=== PATIENT | female | born 1990 | race Caucasian/White ===

== ENCOUNTER 2022-02-05 13:57 | Emergency (ER) | payer SELFPAY ==
[~2022-02-05] VITALS: Ht 147 cm; Wt 58.9 kg
[2022-02-05 15:34] LABS: CLARITY,URINE SL CLOUDY; COLOR,URINE RED; GLUCOSE, URINE (UA) 1+ (NEGATIVE); KETONES,URINE 1+ (NEGATIVE); LEUKOCYTE ESTERASE ,URINE 2+ (NEGATIVE); NITRITE,URINE POSITIVE (NEGATIVE); PH,URINE 6.5 (5-9); PROTEIN,URINE 2+ (NEGATIVE)
[2022-02-05 15:42] LABS: BACTERIA,URINE MODERATE /HPF; BILIRUBIN,URINE NEGATIVE (NEGATIVE); RBC,URINE 0-2 /HPF; SQUAMOUS EPITHELIAL CELL,UR 25-50 /HPF
[2022-02-05] MEDS ORDERED: KETOROLAC 30 MG/ML VIAL IVP ONE (16:15)
[2022-02-05] MEDS ORDERED: PROMETHAZINE INJ 25 MG/ML (PHENERGAN) AMP IVP ONE (16:15)
[2022-02-05] MEDS ORDERED: NS IV 1000 ML 1,000 ML IV ONE (16:15)
--- NOTE | 2022-02-05 16:20 | ED Back Pain ---
General Chief Complaint: Back Problems Stated Complaint: SWEATS,WEAKNESS,BACK PAIN Nursing Triage Note: Pt c/o bilat flank pain that radiates around to lower abd. Pt has been taking AZO, tylenol,motrin with no relief, also reports having the "sweats". Pt recently moved to this area and does not have PCP yet, is out of gabapentin and other meds. Source of Information: Patient Exam Limitations: No Limitations History of Present Illness Date Seen by Provider: February 05, 2022 Time Seen by Provider: 16:08 Initial Comments THIS IS A 31-YEAR-OLD FEMALE WHO PRESENTED TO THE ER WITH COMPLAINTS OF SUPRAPUBIC ABDOMINAL PAIN THAT RADIATES UP IN 2 HER BILATERAL FLANK REGION. Allergies and Home Medications Allergies Coded Allergies: No Known Drug Allergies (Unverified , 02/05/22) Patient Home Medication List Ciprofloxacin HCl (Ciprofloxacin HCl) 500 Mg Tablet, 500 MG PO BID Prescribed by: PATRICIA EUCEDA on 02/05/22 173 Promethazine HCl (Promethazine Tablet) 25 Mg Tablet, 25 MG PO Q6H PRN for NAUSEA/VOMITING Prescribed by: PATRICIA EUCEDA on 02/05/22 1733 Past Dverogp-Xnzdpc-Chzonv Hx Patient Social History Tobacco Use?: Yes Tobacco type used: Cigarettes Smoking Status: Current Everyday Smoker Substance use?: No Alcohol Use?: No Immunizations Up To Date Influenza Vaccine Up-to-Date: No; Not Current Past Medical History Surgery/Hospitalization HX: asthma, hx of cervical CA, neuropathy Physical Exam Vital Signs Vital Signs - First Documented 02/05/22 14:40 Temp 36.8 Pulse 67 Resp 18 B/P (MAP) 109/41 (63) Pulse Ox 98 O2 Delivery Room Air Capillary Refill : Less Than 3 Seconds Height, Weight, BMI Height: '" Weight: lbs. oz. kg; 27.00 BMI Method: Progress/Results/Core Measures Results/Orders Lab Results Laboratory Tests Test 02/05/22 06:27 02/05/22 14:30 Range/Units White Blood Count 8.0 4.3-11.0 10^3/uL Red Blood Count 4.69 3.80-5.11 10^6/uL Hemoglobin 14.4 11.5-16.0 g/dL Hematocrit 42 35-52 % Mean Corpuscular Volume 90 80-99 fL Mean Corpuscular Hemoglobin 31 25-34 pg Mean Corpuscular Hemoglobin Concent 34 32-36 g/dL Red Cell Distribution Width 11.9 10.0-14.5 % Platelet Count 236 130-400 10^3/uL Mean Platelet Volume 9.6 9.0-12.2 fL Immature Granulocyte % (Auto) 0 % Neutrophils (%) (Auto) 48 42-75 % Lymphocytes (%) (Auto) 45 H 12-44 % Monocytes (%) (Auto) 6 0-12 % Eosinophils (%) (Auto) 1 0-10 % Basophils (%) (Auto) 0 0-10 % Neutrophils # (Auto) 3.8 1.8-7.8 10^3/uL Lymphocytes # (Auto) 3.6 1.0-4.0 10^3/uL Monocytes # (Auto) 0.4 0.0-1.0 10^3/uL Eosinophils # (Auto) 0.1 0.0-0.3 10^3/uL Basophils # (Auto) 0.0 0.0-0.1 10^3/uL Immature Granulocyte # (Auto) 0.0 0.0-0.1 10^3/uL Sodium Level 139 135-145 MMOL/L Potassium Level 4.2 3.6-5.0 MMOL/L Chloride Level 107 98-107 MMOL/L Carbon Dioxide Level 20 L 21-32 MMOL/L Anion Gap 12 5-14 MMOL/L Blood Urea Nitrogen 12 7-18 MG/DL Creatinine 0.74 0.60-1.30 MG/DL Estimat Glomerular Filtration Rate 110 BUN/Creatinine Ratio 16 Glucose Level 85 70-105 MG/DL Calcium Level 9.6 8.5-10.1 MG/DL Corrected Calcium 9.2 8.5-10.1 MG/DL Total Bilirubin 0.5 0.1-1.0 MG/DL Aspartate Amino Transf (AST/SGOT) 20 5-34 U/L Alanine Aminotransferase (ALT/SGPT) 23 0-55 U/L Alkaline Phosphatase 50 40-136 U/L Total Protein 6.8 6.4-8.2 GM/DL Albumin 4.5 3.2-4.5 GM/DL Urine Color RED H Urine Clarity SL CLOUDY Urine pH 6.5 5-9 Urine Specific [place] 1.015 L 1.016-1.022 Urine Protein 2+ H NEGATIVE Urine Glucose (UA) 1+ H NEGATIVE Urine Ketones 1+ H NEGATIVE Urine Nitrite POSITIVE H NEGATIVE Urine Bilirubin NEGATIVE NEGATIVE Urine Urobilinogen >=8.0 < = 1.0 MG/DL Urine Leukocyte Esterase 2+ H NEGATIVE Urine RBC (Auto) NEGATIVE NEGATIVE Urine RBC 0-2 /HPF Urine WBC 5-10 H /HPF Urine Squamous Epithelial Cells 25-50 H /HPF Urine Crystals NONE /LPF Urine Bacteria MODERATE H /HPF Urine Casts NONE /LPF Urine Mucus MODERATE H /LPF Urine Culture Indicated YES My Orders Orders - PATRICIA EUCEDA TELEPHONER Ua Culture If Indicated (02/05/22 15:29) Urine Bedside (02/05/22 15:29) Urine Culture (02/05/22 14:30) Cbc With Automated Diff (02/05/22 16:08) Comprehensive Metabolic Panel (02/05/22 16:08) Ketorolac Injection (Toradol Injection) (02/05/22 16:15) Ns Iv 1000 Ml (Sodium Chloride 0.9%) (02/05/22 16:15) Promethazine Injection (Phenergan Injec (02/05/22 16:15) Ceftriaxone 1 Gm Pre-Mix (Rocephin 1 Gm (02/05/22 16:30) Medications Given in ED Current Medications Medications Dose Ordered Sig/Mani Route Start Time Stop Time Status Last Admin Dose Admin Ceftriaxone Sodium/Dextrose 50 ml @ 100 mls/hr ONCE ONCE IV 02/05/22 16:30 02/05/22 16:59 DC 02/05/22 17:23 100 MLS/HR Ketorolac Tromethamine 30 mg ONCE ONCE IVP 02/05/22 16:15 02/05/22 16:16 DC 02/05/22 16:25 30 MG Promethazine HCl 25 mg ONCE ONCE IVP 02/05/22 16:15 02/05/22 16:16 DC 02/05/22 16:25 25 MG Sodium Chloride 1,000 ml @ 999 mls/hr Q1H ONCE IV 02/05/22 16:15 02/05/22 17:15 DC 02/05/22 16:25 999 MLS/HR Vital Signs/I&O 02/05/22 14:40 Temp 36.8 Pulse 67 Resp 18 B/P (MAP) 109/41 (63) Pulse Ox 98 O2 Delivery Room Air Blood Pressure Mean: 63 Departure Impression Primary Impression: Pyelonephritis Disposition: 01 HOME, SELF-CARE Condition: Stable Departure-Patient Inst. Decision time for Depature: 17:29 Referrals: NO,LOCAL PHYSICIAN (PCP/Family) Primary Care Physician Patient Instructions: Kidney Infection (DC) Add. Discharge Instructions: Plan: 1. Take anabiotic's daily as directed and complete full course even if you begin to feel better. 2. Make sure you are drinking plenty of water to stay hydrated and empty out your bladder. 3. Establish with a primary care provider of your choice, you can follow-up with [facility] until your insurance is established in [place]. 4. Return for any new, concerning, or worsening symptoms. All discharge instructions reviewed with patient and/or family. Voiced unde rstanding. Scripts Ketorolac Tromethamine (Ketorolac Tromethamine) 10 Mg Tablet 10 MG PO Q6H, #14 TAB 0 Refills Prov: PATRICIA EUCEDA TELEPHONER 02/05/22 Promethazine HCl (Promethazine Tablet) 25 Mg Tablet 25 MG PO Q6H PRN for NAUSEA/VOMITING, #10 TAB 0 Refills Prov: PATRICIA EUCEDA TELEPHONER 02/05/22 Ciprofloxacin HCl (Ciprofloxacin HCl) 500 Mg Tablet 500 MG PO BID for 7 Days, #14 TAB 0 Refills Prov: PATRICIA EUCEDA TELEPHONER 02/05/22 PATRICIA EUCEDA TELEPHONER February 05, 2022 16:19
[2022-02-05] MEDS ORDERED: cefTRIAXone 1 GM PRE-MIX 50 ML IV ONE (16:30)
[2022-02-05 16:35] LABS: BASOPHILS % (AUTO) 0 % (0-10); EOSINOPHILS # (AUTO) 0.1 10^3/uL (0.0-0.3); EOSINOPHILS % (AUTO) 1 % (0-10); HEMATOCRIT 42 % (35-52); HEMOGLOBIN 14.4 g/dL (11.5-16.0); LYMPHOCYTES # (AUTO) 3.6 10^3/uL (1.0-4.0); LYMPHOCYTES % (AUTO) 45 % (12-44); MEAN CORPUSCULAR HEMOGLOBIN 31 pg (25-34); MEAN CORPUSCULAR HGB CONC 34 g/dL (32-36); MEAN CORPUSCULAR VOLUME 90 fL (80-99); MEAN PLATELET VOLUME 9.6 fL (9.0-12.2); MONOCYTES # (AUTO) 0.4 10^3/uL (0.0-1.0); MONOCYTES % (AUTO) 6 % (0-12); NEUTROPHILS # (AUTO) 3.8 10^3/uL (1.8-7.8); NEUTROPHILS % (AUTO) 48 % (42-75); PLATELET COUNT 236 10^3/uL (130-400)
[2022-02-05 16:43] LABS: ALBUMIN 4.5 GM/DL (3.2-4.5); POTASSIUM 4.2 MMOL/L (3.6-5.0)
[2022-02-05 16:44] LABS: CALCIUM 9.6 MG/DL (8.5-10.1)
[2022-02-05 16:46] LABS: TOTAL PROTEIN 6.8 GM/DL (6.4-8.2)
[2022-02-05 16:48] LABS: BILIRUBIN,TOTAL 0.5 MG/DL (0.1-1.0)
[2022-02-05 16:49] LABS: CREATININE SERUM 0.74 MG/DL (0.60-1.30)
[2022-02-05] MEDS ORDERED: CIPR500T5 PO (17:33)
[2022-02-05] MEDS ORDERED: PROM25TA14 PO (17:33)
[2022-02-05 17:51] VITALS: BP 105/66
[2022-02-05] MEDS ORDERED: KETO10TA PO (17:58)
== END 2022-02-05 17:51 | disposition home or self-care (01) ==
LOC: ER 14:00
DX: N10 Acute pyelonephritis (principal); F17.210 Nicotine dependence, cigarettes, uncomplicated
CPT/HCPCS: 36415; 80053; 81000; 84703; 85025; 87088; 99282

== ENCOUNTER 2022-03-12 18:38 | Emergency (ER) | payer MEDICAID ==
[~2022-03-12] VITALS: Ht 147 cm; Wt 65.0 kg
[~2022-03-12 18:38] MED LIST: CIPR500T5 PO; KETO10TA PO; PROM25TA14 PO
--- NOTE | 2022-03-12 19:14 | ED General ---
General Stated Complaint: SOB,SLEEPY,FATIGUE Source of Information: Patient History of Present Illness Date Seen by Provider: Mar 12, 2022 Time Seen by Provider: 18:59 Initial Comments PT ARRIVES VIA POV FROM HOME PT WITH MULTIPLE COMPLAINTS--ALL ONGOING FOR THE LAST 3-4 WEEKS STATES SHE HAD COVID 3-4 WEEKS AGO, AND IS STILL FEELING BAD--STATES SHE WAS GETTING A LITTLE BETTER, THEN STARTED FEELING BAD AGAIN 3-4 DAYS AGO. LATER STATES SHE TESTED + FOR COVID ON 02/23/22 STATES SHE WAS SEEN AT [facility], AND TESTED + THERE. NO TREATMENT C/O FATIGUE, FEELING SLEEPY--"I'M ONLY CONSCIOUS FOR ABOUT 3-4 HOURS AT A TIME" C/O NAUSEA, NO VOMITING--NO NAUSEA AT THIS TIME C/O CONSTIPATION--NO BM X 2 WEEKS. HAS CHRONIC CONSTIPATION, BUT HAS NOT TAKEN ANYTHING AT ANY TIME FOR THIS PROBLEM. NO FEVER/SWEATS/CHILLS C/O DIZZINESS ON STANDING NO ABDOMINAL PAIN NO URINARY SYMPTOMS SYMPTOMS ARE NO DIFFERENT TONIGHT, HAS NOT SOUGHT CARE AT ANY TIME, SINCE SHE TESTED + A FEW WEEKS AGO AT [facility]. WAS SEEN HERE 02/05/22 AND DX WITH UTI/PYELONEPHRITIS--GIVEN RX'S FOR CIPRO, TORADOL, PHENERGAN STATES SHE JUST MOVED HERE "A MONTH OR SO AGO" FROM [facility] SHE HAS 6 KIDS AT HOME PT HAS HISTORY OF CHRONIC OPIATE USE/ABUSE--NOW ON SUBOXONE ALSO TAKES GABAPENTIN PT HAS HISTORY OF ALCOHOLISM, QUIT DRINKING 7 YEARS AGO HISTORY OF SMOKING 2 PPD, QUIT A FEW WEEKS AGO--QUIT 02/20/22, WHEN SHE BEGAN TO HAVE COVID SYMPTOMS OPIATE USE/ABUSE, DENIES ANY OTHER DRUG USE. PCP [facility] Allergies and Home Medications Allergies Coded Allergies: No Known Drug Allergies (Unverified , 02/05/22) Patient Home Medication List Home Medication List Reviewed: Yes Ciprofloxacin HCl (Ciprofloxacin HCl) 500 Mg Tablet, 500 MG PO BID Prescribed by: PATRICIA EUCEDA on 02/05/22 1593 Ketorolac Tromethamine (Ketorolac Tromethamine) 10 Mg Tablet, 10 MG PO Q6H Prescribed by: PATRICIA EUCEDA on 02/05/22 9501 Ondansetron (Ondansetron Odt) 4 Mg Tab.rapdis, 4 MG PO Q4H Prescribed by: MASSIEL VOGEL on 03/12/221999 Promethazine HCl (Promethazine Tablet) 25 Mg Tablet, 25 MG PO Q6H PRN for NAUSEA/VOMITING Prescribed by: PATRICIA EUCEDA on 02/05/22 1736 Review of Systems Review of Systems Constitutional: see HPI, dizziness; No fever; malaise, weakness EENTM: no symptoms reported Respiratory: see HPI, short of breath Cardiovascular: no symptoms reported Gastrointestinal: see HPI, constipation, loss of appetite, nausea; No vomiting Genitourinary: no symptoms reported : No Musculoskeletal: other (CHRONIC GENERALIZED PAIN ) Skin: no symptoms reported Psychiatric/Neurological: No Symptoms Reported Past Eaeiwoh-Npijgf-Mdybuk Hx Patient Social History Tobacco Use?: Yes Tobacco type used: Cigarettes Smoking Status: Current Everyday Smoker Substance use?: Yes Substance type: Opiates/Opioids Alcohol Use?: Yes Past Medical History Surgery/Hospitalization HX: asthma, hx of cervical CA, neuropathy Surgeries: Yes (LEEP, TEETH REMOVED) Gallbladder Respiratory: Yes Asthma Cardiac: No Neurological: Yes (FIBROMYALGIA) Neuropathy Reproductive Disorders: Yes (CERVICAL CANCER) Genitourinary: Yes Bladder Infection Gastrointestinal: Yes Chronic Constipation Musculoskeletal: Yes (CHRONIC GENERALIZED PAIN ) Fibromyalgia Endocrine: No HEENT: Yes (ALL TEETH REMOVED) Cervical Did You Recieve Any Treatments: Yes What Type of Treatment Did You: Surgical Intervention LEEP PROCEDURE Psychosocial: Yes (POLYSUBSTANCE ABUSE-ALCOHOL + OPIATES) Integumentary: No Blood Disorders: No Family Medical History SOCIAL HISTORY: -SMOKES 2 PPD -ETOH--HISTORY OF VERY HEAVY/DAILY USE. CLAIMS NO USE X 7 YEARS, PER PT 03/12/22 -DRUGS--CHRONIC OPIATE USE/ABUSE-NOW ON SUBOXONE PAST SURGICAL HISTORY: -LEEP -CHOLECYSTECTOMY -ALL TEETH REMOVED Physical Exam Vital Signs Vital Signs - First Documented 03/12/22 19:25 Pulse 80 Resp 18 B/P (MAP) 101/63 (76) Pulse Ox 99 O2 Delivery Room Air Capillary Refill : Height, Weight, BMI Height: '" Weight: lbs. oz. kg; 27.00 BMI Method: General Appearance: No Apparent Distress, WD/WN, Other (DOES NOT APPEAR ILL OR TO BE IN ANY DISCOMFORT OR DISTRESS. ) HEENT: PERRL/EOMI, TMs Normal, Normal ENT Inspection, Pharynx Normal, Moist Mucous Membranes, Other (ORAL MUCOSA MOIST) Neck: Normal Inspection Respiratory: Normal Breath Sounds, No Accessory Muscle Use, No Respiratory Distress Cardiovascular: Regular Rate, Rhythm, No Edema, No JVD, No Murmur, Normal Peripheral Pulses Gastrointestinal: Normal Bowel Sounds, No Organomegaly, No Pulsatile Mass, Non Tender, Soft Back: Normal Inspection Extremity: Normal Capillary Refill, Normal Inspection, Normal Range of Motion, Non Tender, No Calf Tenderness, No Pedal Edema Neurologic/Psychiatric: Alert, Oriented x3, No Motor/Sensory Deficits, 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 ) Skin: Normal Color, Warm/Dry Progress/Results/Core Measures Suspected Sepsis SIRS Temperature: Pulse: Respiratory Rate: Laboratory Tests 03/12/22 19:20: White Blood Count 6.1 Blood Pressure / Mean: Laboratory Tests 03/12/22 19:20: Creatinine 0.74, Platelet Count 212, Total Bilirubin 0.3 Results/Orders Lab Results Laboratory Tests Test 03/12/22 19:20 03/12/22 19:39 Range/Units White Blood Count 6.1 4.3-11.0 10^3/uL Red Blood Count 4.40 3.80-5.11 10^6/uL Hemoglobin 13.0 11.5-16.0 g/dL Hematocrit 39 35-52 % Mean Corpuscular Volume 88 80-99 fL Mean Corpuscular Hemoglobin 30 25-34 pg Mean Corpuscular Hemoglobin Concent 33 32-36 g/dL Red Cell Distribution Width 11.9 10.0-14.5 % Platelet Count 212 130-400 10^3/uL Mean Platelet Volume 9.1 9.0-12.2 fL Immature Granulocyte % (Auto) 0 % Neutrophils (%) (Auto) 43 42-75 % Lymphocytes (%) (Auto) 51 H 12-44 % Monocytes (%) (Auto) 5 0-12 % Eosinophils (%) (Auto) 1 0-10 % Basophils (%) (Auto) 0 0-10 % Neutrophils # (Auto) 2.6 1.8-7.8 10^3/uL Lymphocytes # (Auto) 3.1 1.0-4.0 10^3/uL Monocytes # (Auto) 0.3 0.0-1.0 10^3/uL Eosinophils # (Auto) 0.1 0.0-0.3 10^3/uL Basophils # (Auto) 0.0 0.0-0.1 10^3/uL Immature Granulocyte # (Auto) 0.0 0.0-0.1 10^3/uL Sodium Level 139 135-145 MMOL/L Potassium Level 3.8 3.6-5.0 MMOL/L Chloride Level 105 98-107 MMOL/L Carbon Dioxide Level 23 21-32 MMOL/L Anion Gap 11 5-14 MMOL/L Blood Urea Nitrogen 17 7-18 MG/DL Creatinine 0.74 0.60-1.30 MG/DL Estimat Glomerular Filtration Rate 110 BUN/Creatinine Ratio 23 Glucose Level 107 H 70-105 MG/DL Calcium Level 9.4 8.5-10.1 MG/DL Corrected Calcium 8.5-10.1 MG/DL Magnesium Level 1.9 1.6-2.4 MG/DL Total Bilirubin 0.3 0.1-1.0 MG/DL Aspartate Amino Transf (AST/SGOT) 40 H 5-34 U/L Alanine Aminotransferase (ALT/SGPT) 58 H 0-55 U/L Alkaline Phosphatase 51 40-136 U/L Total Protein 6.8 6.4-8.2 GM/DL Albumin 4.6 H 3.2-4.5 GM/DL Amylase Level 46 25-125 U/L Lipase 33 8-78 U/L TSH [facility] Testing 0.74 0.35-4.94 UIU/ML Urine Color YELLOW Urine Clarity CLEAR Urine pH 6.0 5-9 Urine Specific [place] >=1.030 1.016-1.022 Urine Protein NEGATIVE NEGATIVE Urine Glucose (UA) NEGATIVE NEGATIVE Urine Ketones NEGATIVE NEGATIVE Urine Nitrite NEGATIVE NEGATIVE Urine Bilirubin NEGATIVE NEGATIVE Urine Urobilinogen 0.2 < = 1.0 MG/DL Urine Leukocyte Esterase NEGATIVE NEGATIVE Urine RBC (Auto) NEGATIVE NEGATIVE Urine RBC NONE /HPF Urine WBC 0-2 /HPF Urine Squamous Epithelial Cells 5-10 /HPF Urine Renal Epithelial Cells NONE /HPF Urine Crystals NONE /LPF Urine Bacteria FEW H /HPF Urine Casts NONE /LPF Urine Mucus NEGATIVE /LPF Urine Culture Indicated NO Urine Opiates Screen NEGATIVE NEGATIVE Urine Oxycodone Screen NEGATIVE NEGATIVE Urine Methadone Screen NEGATIVE NEGATIVE Urine Propoxyphene Screen NEGATIVE NEGATIVE Urine Barbiturates Screen NEGATIVE NEGATIVE Ur Tricyclic Antidepressants Screen NEGATIVE NEGATIVE Urine Phencyclidine Screen NEGATIVE NEGATIVE Urine Amphetamines Screen NEGATIVE NEGATIVE Urine Methamphetamines Screen NEGATIVE NEGATIVE Urine Benzodiazepines Screen NEGATIVE NEGATIVE Urine Cocaine Screen NEGATIVE NEGATIVE Urine Cannabinoids Screen NEGATIVE NEGATIVE My Orders Orders - MASSIEL VOGEL DO Drug Screen Stat (Urine) (03/12/22 18:58) Ua Culture If Indicated (03/12/22 18:58) Isolation Central Supply Req (03/12/22 18:58) Urine Bedside (03/12/22 18:58) Ed Iv/Invasive Line Start (03/12/22 19:04) Amylase (03/12/22 19:04) Cbc With Automated Diff (03/12/22 19:04) Comprehensive Metabolic Panel (03/12/22 19:04) Lipase (03/12/22 19:04) Magnesium (03/12/22 19:04) Thyroid Analyzer (03/12/22 19:04) Ed Iv/Invasive Line Start (03/12/22 19:04) Chest Pa/Lat (2 View) (03/12/22 19:04) Vital Signs/I&O 03/12/22 03/12/22 19:25 20:04 Pulse 80 62 Resp 18 18 B/P (MAP) 101/63 (76) 101/63 Pulse Ox 99 96 O2 Delivery Room Air Room Air Capillary Refill : Progress Note : Progress Note UNEVENTFUL ER STAY NO COUGH NO FEVER NO DYSPNEA NO HYPOXIA NO GI SYMTPOMS DURING ER STAY Diagnostic Imaging Comments CXR--NO ACUTE PROCESS, PER RADIOLOGIST REPORT AT 2019 FINDINGS: The cardiac silhouette is within normal limits in size. No significant pulmonary vascular congestion. The lungs appear clear. No pleural effusion. No pneumothorax. Surgical clips overlying the right upper abdomen. No acute osseous abnormality. IMPRESSION: No acute cardiopulmonary abnormality. Reviewed: Reviewed by Me Departure Impression Primary Impression: Malaise and fatigue Additional Impression: Chronic constipation Disposition: 01 HOME, SELF-CARE Condition: Stable Departure-Patient Inst. Decision time for Depature: 19:58 Referrals: [facility] Patient Instructions: Constipation, Adult ED, Fatigue (DC) Add. Discharge Instructions: TAKE MIRALAX EVERY 1-2 HOURS UNTIL YOU HAVE A BM, THEN TAKE ONCE A DAY EVERY DAY CONTINUE YOUR REGULAR MEDICATIONS PRESCRIBED FOLLOW UP WITH [facility] IF SYMPTOMS PERSIST Scripts Ondansetron (Ondansetron Odt) 4 Mg Tab.rapdis 4 MG PO Q4H for Nausea/Vomiting, #10 TAB Prov: MASSIEL VOGEL DO 03/12/22 MASSIEL VOGEL DO Mar 12, 2022 19:14
[2022-03-12 19:29] LABS: BASOPHILS % (AUTO) 0 % (0-10); EOSINOPHILS # (AUTO) 0.1 10^3/uL (0.0-0.3); EOSINOPHILS % (AUTO) 1 % (0-10); HEMATOCRIT 39 % (35-52); LYMPHOCYTES # (AUTO) 3.1 10^3/uL (1.0-4.0); LYMPHOCYTES % (AUTO) 51 % (12-44); MEAN CORPUSCULAR HEMOGLOBIN 30 pg (25-34); MEAN CORPUSCULAR HGB CONC 33 g/dL (32-36); MEAN CORPUSCULAR VOLUME 88 fL (80-99); MEAN PLATELET VOLUME 9.1 fL (9.0-12.2); MONOCYTES # (AUTO) 0.3 10^3/uL (0.0-1.0); MONOCYTES % (AUTO) 5 % (0-12); NEUTROPHILS # (AUTO) 2.6 10^3/uL (1.8-7.8); NEUTROPHILS % (AUTO) 43 % (42-75); PLATELET COUNT 212 10^3/uL (130-400); WHITE BLOOD COUNT 6.1 10^3/uL (4.3-11.0)
[2022-03-12 19:43] LABS: ALBUMIN 4.6 GM/DL (3.2-4.5); CHLORIDE 105 MMOL/L (98-107); POTASSIUM 3.8 MMOL/L (3.6-5.0); SODIUM 139 MMOL/L (135-145)
[2022-03-12 19:44] LABS: BILIRUBIN,URINE NEGATIVE (NEGATIVE); CLARITY,URINE CLEAR; COLOR,URINE YELLOW; GLUCOSE, URINE (UA) NEGATIVE (NEGATIVE); KETONES,URINE NEGATIVE (NEGATIVE); LEUKOCYTE ESTERASE ,URINE NEGATIVE (NEGATIVE); NITRITE,URINE NEGATIVE (NEGATIVE); PROTEIN,URINE NEGATIVE (NEGATIVE)
[2022-03-12 19:44] LABS: AMYLASE 46 U/L (25-125); CALCIUM 9.4 MG/DL (8.5-10.1)
[2022-03-12 19:45] LABS: GLUCOSE 107 MG/DL (70-105); TOTAL PROTEIN 6.8 GM/DL (6.4-8.2)
[2022-03-12 19:46] LABS: CARBON DIOXIDE 23 MMOL/L (21-32)
[2022-03-12 19:47] LABS: BILIRUBIN,TOTAL 0.3 MG/DL (0.1-1.0)
[2022-03-12 19:49] LABS: ALKALINE PHOSPHATASE 51 U/L (40-136); CREATININE SERUM 0.74 MG/DL (0.60-1.30); GFR ESTIMATED 110
[2022-03-12 19:50] LABS: BUN/CREATININE RATIO 23
[2022-03-12 19:50] LABS: BACTERIA,URINE FEW /HPF; WBC,URINE 0-2 /HPF
[2022-03-12 19:52] LABS: ALANINE AMINOTRANSFERASE 58 U/L (0-55); MAGNESIUM 1.9 MG/DL (1.6-2.4)
[2022-03-12 19:53] LABS: LIPASE 33 U/L (8-78)
[2022-03-12 19:54] LABS: AMPHETAMINE SCREEN, URINE NEGATIVE (NEGATIVE); BARBITURATE SCREEN URINE NEGATIVE (NEGATIVE); BENZODIAZEPINES SCREEN URINE NEGATIVE (NEGATIVE); CANNABINOID SCREEN, URINE NEGATIVE (NEGATIVE); COCAINE SCREEN URINE NEGATIVE (NEGATIVE); METHADONE STAT NEGATIVE (NEGATIVE); OPIATE SCREEN URINE NEGATIVE (NEGATIVE); OXYCODONE STAT NEGATIVE (NEGATIVE); PROPOXYPHENE STAT NEGATIVE (NEGATIVE); TRICYCLIC ANTIDEPRESSANTS SCRE NEGATIVE (NEGATIVE)
[2022-03-12] MEDS ORDERED: ONDA4TAB11 PO (20:00)
[2022-03-12 20:04] VITALS: BP 101/63
[2022-03-12 20:13] LABS: TSH (THYROID ANALYZER) 0.74 UIU/ML (0.35-4.94)
--- NOTE | 2022-03-12 20:15 | Diagnostic Imaging Report ---
INDICATION: Dyspnea COMPARISON: None available. TECHNIQUE: Frontal and lateral radiographs of the chest dated 03/12/2022. FINDINGS: The cardiac silhouette is within normal limits in size. No significant pulmonary vascular congestion. The lungs appear clear. No pleural effusion. No pneumothorax. Surgical clips overlying the right upper abdomen. No acute osseous abnormality. IMPRESSION: No acute cardiopulmonary abnormality. Dictated by: Dictated on workstation # [id number]
== END 2022-03-12 20:25 | disposition home or self-care (01) ==
LOC: EDUNIT# 18:38 → ER 18:50
DX: K59.09 Other constipation (principal); R53.81 Other malaise; R53.83 Other fatigue; F17.210 Nicotine dependence, cigarettes, uncomplicated; Z86.16 Personal history of COVID-19
CPT/HCPCS: 36415; 71046; 80053; 80306; 81000; 82150; 83690; 83735; 84443; 84703; 85025

== ENCOUNTER 2022-03-26 12:54 | Emergency (ER) | payer MEDICAID ==
[~2022-03-26] VITALS: Ht 147 cm; Wt 61.0 kg
[~2022-03-26 12:54] MED LIST changes: +ONDA4TAB11 PO
[2022-03-26] MEDS ORDERED: NS IV 1000 ML 1,000 ML IV STA (13:32)
--- NOTE | 2022-03-26 13:37 | ED General ---
General Chief Complaint: Dizziness/Syncope Stated Complaint: WEAKNESS,FATIGUE Nursing Triage Note: PT AMB TO TRIAGE RM 3. PT REPORTS CO DIZZINESS, V, BLURRED VISION, WEAKNESS, SLEEPING ALOT AND LOW ENERGY SINCE FEBRUARY. PT REPORTS HAVING COVID IN FEBRUARY Source of Information: Patient Exam Limitations: No Limitations History of Present Illness Date Seen by Provider: Mar 26, 2022 Time Seen by Provider: 13:34 Initial Comments Patient is a 31-year-old female who presents to the ED with generalized fatigue, weakness. She states she was diagnosed with COVID back in February. Since then she has been feeling more fatigue and wanting to sleep longer. She states she has decreased energy levels. She has had intermittent dull chest discomfort pain left arm pain with shortness of breath since being diagnosed with COVID. She started her menstrual cycle 2 days ago reports heavier bleeding with headache and nausea and vomiting which she typically does not have. She reports right- sided lower back discomfort since having COVID. She denies of any bowel or urine incontinence, saddle paresthesia. No fever. Intermittent headache with no head pain today. She states she has been vomiting and denies of any nausea medication. She states she did have a kidney infection a month ago but that has resolved with antibiotics. Has not followed up with a primary care physician. No known cardiac history. She states she was otherwise healthy before COVID which she got in February and September of this year. She is not up-to-date on her COVID vaccines. Allergies and Home Medications Allergies Coded Allergies: No Known Drug Allergies (Unverified , 02/05/22) Patient Home Medication List Home Medication List Reviewed: Yes Ciprofloxacin HCl (Ciprofloxacin HCl) 500 Mg Tablet, 500 MG PO BID Prescribed by: PATRICIA EUCEDA on 02/05/221732 Ketorolac Tromethamine (Ketorolac Tromethamine) 10 Mg Tablet, 10 MG PO Q6H Prescribed by: PATRICIA EUCEDA on 02/05/22 175 Ondansetron (Ondansetron Odt) 4 Mg Tab.rapdis, 4 MG PO Q4H Prescribed by: MASSIEL VOGEL on 03/12/221999 Promethazine HCl (Promethazine Tablet) 25 Mg Tablet, 25 MG PO Q6H PRN for NAUSEA/VOMITING Prescribed by: PATRICIA EUCEDA on 02/05/221732 Promethazine HCl (Promethazine Tablet) 25 Mg Tablet, 25 MG PO Q6H PRN for NAUSEA/VOMITING Prescribed by: SOFI WEBBER on 03/26/22 1528 Review of Systems Review of Systems Constitutional: chills, malaise EENTM: No blurred vision, No double vision Respiratory: cough, short of breath Gastrointestinal: No abdominal pain, No diarrhea; nausea, vomiting Genitourinary: No decreased output, No discharge Musculoskeletal: back pain; No joint pain Skin: No change in color, No change in hair/nails All Other Systems Reviewed Negative Unless Noted: Yes Past Fjczibj-Kiinda-Qfgpuz Hx Past Medical History Surgery/Hospitalization HX: asthma, hx of cervical CA, neuropathy Surgeries: Yes (LEEP, TEETH REMOVED) Gallbladder Respiratory: Yes Asthma Cardiac: No Neurological: Yes (FIBROMYALGIA) Neuropathy Reproductive Disorders: Yes (CERVICAL CANCER) Genitourinary: Yes Bladder Infection Gastrointestinal: Yes Chronic Constipation Musculoskeletal: Yes (CHRONIC GENERALIZED PAIN ) Fibromyalgia Endocrine: No HEENT: Yes (ALL TEETH REMOVED) Cervical Did You Recieve Any Treatments: Yes What Type of Treatment Did You: Surgical Intervention Psychosocial: Yes (POLYSUBSTANCE ABUSE-ALCOHOL + OPIATES) Integumentary: No Blood Disorders: No Family Medical History SOCIAL HISTORY: -SMOKES 2 PPD -ETOH--HISTORY OF VERY HEAVY/DAILY USE. CLAIMS NO USE X 7 YEARS, PER PT 03/12/22 -DRUGS--CHRONIC OPIATE USE/ABUSE-NOW ON SUBOXONE PAST SURGICAL HISTORY: -LEEP -CHOLECYSTECTOMY -ALL TEETH REMOVED Physical Exam Vital Signs Vital Signs - First Documented 03/26/22 13:20 Temp 36.0 Pulse 90 Resp 16 B/P (MAP) 136/88 (104) Pulse Ox 98 O2 Delivery Room Air Capillary Refill : Less Than 3 Seconds Height, Weight, BMI Height: '" Weight: lbs. oz. kg; 28.00 BMI Method: General Appearance: No Apparent Distress, WD/WN Eyes: Bilateral Eye Normal Inspection, Bilateral Eye PERRL, Bilateral Eye EOMI HEENT: PERRL/EOMI, TMs Normal, Normal ENT Inspection, Pharynx Normal Neck: Full Range of Motion, Normal Inspection, Non Tender, Supple Respiratory: Chest Non Tender, Lungs Clear, Normal Breath Sounds, No Accessory Muscle Use, No Respiratory Distress Cardiovascular: Regular Rate, Rhythm, No Edema, No Gallop, No JVD, No Murmur Gastrointestinal: Normal Bowel Sounds, No Organomegaly, No Pulsatile Mass, Non Tender, Soft Back: No CVA Tenderness, No Vertebral Tenderness, Other (Right) Extremity: Normal Capillary Refill, Normal Inspection, Normal Range of Motion, Non Tender Neurologic/Psychiatric: Alert, Oriented x3, No Motor/Sensory Deficits, Normal Mood/Affect, head of conservation II-XII Norm as Tested Skin: Normal Color, Warm/Dry Progress/Results/Core Measures Suspected Sepsis SIRS Temperature: Pulse: 90 Respiratory Rate: 16 Laboratory Tests 03/26/22 13:44: White Blood Count 5.6 Blood Pressure 136 /88 Mean: 104 Laboratory Tests 03/26/22 13:44: Platelet Count 164 03/26/22 14:32: Creatinine 0.67, INR Comment 0.9, Total Bilirubin 0.3 Results/Orders Lab Results Laboratory Tests Test 03/26/22 13:44 03/26/22 14:00 03/26/22 14:32 Range/Units White Blood Count 5.6 4.3-11.0 10^3/uL Red Blood Count 4.77 3.80-5.11 10^6/uL Hemoglobin 14.6 11.5-16.0 g/dL Hematocrit 42 35-52 % Mean Corpuscular Volume 88 80-99 fL Mean Corpuscular Hemoglobin 31 25-34 pg Mean Corpuscular Hemoglobin Concent 35 32-36 g/dL Red Cell Distribution Width 11.9 10.0-14.5 % Platelet Count 164 130-400 10^3/uL Mean Platelet Volume 10.3 9.0-12.2 fL Immature Granulocyte % (Auto) 0 % Neutrophils (%) (Auto) 53 42-75 % Lymphocytes (%) (Auto) 40 12-44 % Monocytes (%) (Auto) 6 0-12 % Eosinophils (%) (Auto) 1 0-10 % Basophils (%) (Auto) 0 0-10 % Neutrophils # (Auto) 3.0 1.8-7.8 10^3/uL Lymphocytes # (Auto) 2.2 1.0-4.0 10^3/uL Monocytes # (Auto) 0.3 0.0-1.0 10^3/uL Eosinophils # (Auto) 0.1 0.0-0.3 10^3/uL Basophils # (Auto) 0.0 0.0-0.1 10^3/uL Immature Granulocyte # (Auto) 0.0 0.0-0.1 10^3/uL Percent Immature Platelet Fraction 4.1 0.0-7.6 % B-Type Natriuretic Peptide < 10.0 <100.0 PG/ML Serum Test, Qualitative NEGATIVE NEGATIVE Urine Color ORANGE Urine Clarity CLOUDY Urine pH 7.0 5-9 Urine Specific Hammon >=1.030 1.016-1.022 Urine Protein 1+ H NEGATIVE Urine Glucose (UA) NEGATIVE NEGATIVE Urine Ketones NEGATIVE NEGATIVE Urine Nitrite NEGATIVE NEGATIVE Urine Bilirubin 1+ H NEGATIVE Urine Urobilinogen 0.2 < = 1.0 MG/DL Urine Leukocyte Esterase NEGATIVE NEGATIVE Urine RBC (Auto) 3+ H NEGATIVE Urine RBC 10-25 H /HPF Urine WBC NONE /HPF Urine Squamous Epithelial Cells 2-5 /HPF Urine Crystals NONE /LPF Urine Bacteria TRACE /HPF Urine Casts NONE /LPF Urine Mucus SMALL H /LPF Urine Culture Indicated NO Prothrombin Time 12.7 12.2-14.7 SEC INR Comment 0.9 0.8-1.4 Activated Partial Thromboplast Time 31 24-35 SEC Sodium Level 138 135-145 MMOL/L Potassium Level 4.1 3.6-5.0 MMOL/L Chloride Level 105 98-107 MMOL/L Carbon Dioxide Level 21 21-32 MMOL/L Anion Gap 12 5-14 MMOL/L Blood Urea Nitrogen 10 7-18 MG/DL Creatinine 0.67 0.60-1.30 MG/DL Estimat Glomerular Filtration Rate 119 BUN/Creatinine Ratio 15 Glucose Level 123 H 70-105 MG/DL Calcium Level 8.8 8.5-10.1 MG/DL Corrected Calcium 8.6 8.5-10.1 MG/DL Magnesium Level 2.0 1.6-2.4 MG/DL Total Bilirubin 0.3 0.1-1.0 MG/DL Aspartate Amino Transf (AST/SGOT) 39 H 5-34 U/L Alanine Aminotransferase (ALT/SGPT) 68 H 0-55 U/L Alkaline Phosphatase 57 40-136 U/L Myoglobin 24.0 10.0-92.0 NG/ML Troponin I < 0.028 <0.028 NG/ML Total Protein 6.6 6.4-8.2 GM/DL Albumin 4.3 3.2-4.5 GM/DL Thyroid Stimulating Hormone (TSH) 0.47 0.35-4.94 UIU/ML My Orders Orders - RODNEY CAAL Urinalysis (03/26/22 13:21) Hcg,Qualitative Serum (03/26/22 13:21) Cbc With Automated Diff (03/26/22 13:32) Magnesium (03/26/22 13:32) Chest 1 View, Ap/Pa Only (03/26/22 13:32) Ekg Tracing (03/26/22 13:32) Comprehensive Metabolic Panel (03/26/22 13:32) Myoglobin Serum (03/26/22 13:32) Protime With Inr (03/26/22 13:32) Partial Thromboplastin Time (03/26/22 13:32) Monitor-Rhythm Ecg Trace Only (03/26/22 13:32) Ed Iv/Invasive Line Start (03/26/22 13:32) Bnp Giovanni (03/26/22 13:32) Troponin I Giovanni (03/26/22 13:32) Ns Iv 1000 Ml (Sodium Chloride 0.9%) (03/26/22 13:32) Ondansetron Injection (Zofran Injectio (03/26/22 13:45) Thyroid Stimulating Hormone (03/26/22 13:35) Promethazine Injection (Phenergan Injec (03/26/22 14:30) Medications Given in ED Current Medications Medications Dose Ordered Sig/Mani Route Start Time Stop Time Status Last Admin Dose Admin Ondansetron HCl 4 mg ONCE ONCE IVP 03/26/22 13:45 03/26/22 13:46 DC 03/26/22 13:52 4 MG Promethazine HCl 25 mg ONCE ONCE IVP 03/26/22 14:30 03/26/22 14:31 DC 03/26/22 14:35 25 MG Vital Signs/I&O 03/26/22 03/26/22 13:20 15:40 Temp 36.0 36.0 Pulse 90 90 Resp 16 16 B/P (MAP) 136/88 (104) 136/88 Pulse Ox 98 98 O2 Delivery Room Air Room Air Capillary Refill : Less Than 3 Seconds 2 Blood Pressure Mean: 104 ECG Comment Sinus bradycardia, 57 bpm, QRS duration 86 MS, QTc 448 MS. Departure Communication (PCP) Patient is a 31-year-old female who presents ED with continue symptoms of fatigue and weakness since being diagnosed with COVID and February. On arrival her vital signs stable. She was slightly tearful. She has multiple complaints. Due to her intermittent chest pain cardiac work-up was ordered. She has right lower back pain without any specific injury. No current urinary symptoms. Currently on her menstrual cycle with abnormal vaginal bleeding. She has no abdominal tenderness. Urinalysis possible hematuria without evidence infection or . Lab work was otherwise unremarkable. Normal cardiac work-up. She is not tachycardic or hypoxic suggesting PE. Low heart score. Patient was given Phenergan and Zofran for her nausea. She does have a headache. Currently on her menstrual cycle as well which may be associated with the vomiting however she states she has not felt well with some nausea since diagnosed with COVID. Due to her current symptoms may be reasonable to follow-up with cardiology outpatient for the intermittent chest pain shortness of breath. Does not appear in any respiratory distress. Chest x-ray was unremarkable. She scheduled follow-up with her primary care physician in a few weeks. Normal thyroid. Lab work reassuring. Continue with conservative treatment. Discussed diet changes, recommend hydration. Will discharge with nausea medication. If any worsening symptoms return back to ED. Impression Primary Impression: General weakness Disposition: 01 HOME, SELF-CARE Condition: Stable Departure-Patient Inst. Decision time for Depature: 15:27 Referrals: [facility] [place] NO,LOCAL PHYSICIAN (PCP) Primary Care Physician Patient Instructions: Generalized Weakness (DC) Scripts Promethazine HCl (Promethazine Tablet) 25 Mg Tablet 25 MG PO Q6H PRN for NAUSEA/VOMITING, #8 TAB Prov: RODNEY CAAL 03/26/22 RODNEY CAAL Mar 26, 2022 13:37
[2022-03-26] MEDS ORDERED: ONDANSETRON 4 MG/2 ML (SDV) Z0FRAN IVP ONE (13:45)
[2022-03-26 13:50] LABS: BASOPHILS % (AUTO) 0 % (0-10); EOSINOPHILS # (AUTO) 0.1 10^3/uL (0.0-0.3); EOSINOPHILS % (AUTO) 1 % (0-10); MEAN CORPUSCULAR HEMOGLOBIN 31 pg (25-34)
[2022-03-26 13:52] LABS: HEMATOCRIT 42 % (35-52); HEMOGLOBIN 14.6 g/dL (11.5-16.0); LYMPHOCYTES # (AUTO) 2.2 10^3/uL (1.0-4.0); LYMPHOCYTES % (AUTO) 40 % (12-44); MEAN CORPUSCULAR HGB CONC 35 g/dL (32-36); MEAN CORPUSCULAR VOLUME 88 fL (80-99); MEAN PLATELET VOLUME 10.3 fL (9.0-12.2); MONOCYTES # (AUTO) 0.3 10^3/uL (0.0-1.0); MONOCYTES % (AUTO) 6 % (0-12); NEUTROPHILS % (AUTO) 53 % (42-75); PLATELET COUNT 164 10^3/uL (130-400); WHITE BLOOD COUNT 5.6 10^3/uL (4.3-11.0)
--- NOTE | 2022-03-26 14:10 | Diagnostic Imaging Report ---
INDICATION: Chest pain, blurred vision. TECHNIQUE/COMPARISON: A frontal chest was obtained at 1:49 PM and compared to 03/12/2022. FINDINGS: The heart and mediastinal silhouette are normal in appearance. The lungs are clear. There is no pneumothorax or pleural fluid. IMPRESSION: Negative chest. Dictated by: Dictated on workstation # [id number]
[2022-03-26 14:25] LABS: CLARITY,URINE CLOUDY; COLOR,URINE ORANGE; GLUCOSE, URINE (UA) NEGATIVE (NEGATIVE); KETONES,URINE NEGATIVE (NEGATIVE); LEUKOCYTE ESTERASE ,URINE NEGATIVE (NEGATIVE); NITRITE,URINE NEGATIVE (NEGATIVE); PROTEIN,URINE 1+ (NEGATIVE)
[2022-03-26] MEDS ORDERED: PROMETHAZINE INJ 25 MG/ML (PHENERGAN) AMP IVP ONE (14:30)
[2022-03-26 14:40] LABS: BACTERIA,URINE TRACE /HPF; BILIRUBIN,URINE 1+ (NEGATIVE)
[2022-03-26 14:57] LABS: ALBUMIN 4.3 GM/DL (3.2-4.5); INR 0.9 (0.8-1.4); POTASSIUM 4.1 MMOL/L (3.6-5.0); PROTHROMBIN TIME PATIENT 12.7 SEC (12.2-14.7)
[2022-03-26 14:59] LABS: CALCIUM 8.8 MG/DL (8.5-10.1)
[2022-03-26 15:00] LABS: TOTAL PROTEIN 6.6 GM/DL (6.4-8.2)
[2022-03-26 15:02] LABS: BILIRUBIN,TOTAL 0.3 MG/DL (0.1-1.0)
[2022-03-26 15:03] LABS: CREATININE SERUM 0.67 MG/DL (0.60-1.30)
[2022-03-26] MEDS ORDERED: PROM25TA14 PO (15:28)
[2022-03-26 15:40] VITALS: BP 136/88
== END 2022-03-26 15:40 | disposition home or self-care (01) ==
LOC: EDUNIT# 12:54 → ER 12:56
DX: R53.1 Weakness (principal); R53.83 Other fatigue; R07.89 Other chest pain; M54.50 Low back pain, unspecified; Z86.16 Personal history of COVID-19; Z28.310 Unvaccinated for COVID-19; Z32.02 Encounter for pregnancy test, result negative
CPT/HCPCS: 36415; 71045; 80053; 81000; 83735; 83874; 83880; 84443; 84484; 84703; 85025; 85610; 85730; 93005

== ENCOUNTER 2022-04-01 11:47 | Emergency (ER) | payer MEDICAID ==
[~2022-04-01] VITALS: Ht 160 cm; Wt 61.0 kg
[2022-04-01 12:26] LABS: BILIRUBIN,URINE NEGATIVE (NEGATIVE); CLARITY,URINE SL CLOUDY; COLOR,URINE YELLOW; GLUCOSE, URINE (UA) NEGATIVE (NEGATIVE); KETONES,URINE NEGATIVE (NEGATIVE); LEUKOCYTE ESTERASE ,URINE NEGATIVE (NEGATIVE); NITRITE,URINE NEGATIVE (NEGATIVE); PROTEIN,URINE NEGATIVE (NEGATIVE)
[2022-04-01] MEDS ORDERED: NS IV 1000 ML 1,000 ML IV STA (12:33)
--- NOTE | 2022-04-01 12:37 | ED Abdominal Pain ---
General Chief Complaint: Abdominal/GI Problems Stated Complaint: CONSTIPATION,ABD PAIN,N/V Source of Information: Patient Exam Limitations: No Limitations (RODNEY CAAL) History of Present Illness Date Seen by Provider: Apr 01, 2022 Time Seen by Provider: 12:35 Initial Comments Patient is a 31-year-old female with a history of cholecystectomy, fatty liver who presents the ED with multiple complaints. She states she has been feeling nauseous over the past month. She states she had COVID back in February. Started having a pain to her left lateral abdomen 2 days ago described as sharp without radiation. She also reports back pain as well worse on the left side. She reports intermittent vomiting with constipation since than. Constipation over the past two months with a bowel movement once a week. Has been taken Dulcolax, MiraLAX and did a enema last night with some bowel movement. She states she typically has a bowel movement once a week. Has to use a Fleet enema if no improvement with MiraLAX or Dulcolax. Currently on Suboxone for the past 2 years. She feels like she cannot fully empty her bowels. She states her last menstrual cycle was on 03/26. She states every time she eats food she feels like the food comes up into her throat. History of GERD. She states she has had a EGD in the past that unremarkable. She states she has been taking out stool to help with her bowel movements. Patient denies any fever, chest pain, cough, shortness of breath, headache, dizziness or urinary symptoms. Patient denies any dark tarry stools or concern for . (RODNEY CAAL) Allergies and Home Medications Allergies Coded Allergies: No Known Drug Allergies (Unverified , 02/05/22) Patient Home Medication List Home Medication List Reviewed: Yes (RODNEY CAAL) Ciprofloxacin HCl (Ciprofloxacin HCl) 500 Mg Tablet, 500 MG PO BID Prescribed by: PATRICIA EUCEDA on 02/05/22 189 Ketorolac Tromethamine (Ketorolac Tromethamine) 10 Mg Tablet, 10 MG PO Q6H Prescribed by: PATRICIA EUCEDA on 02/05/22 459 Magnesium Citrate (Magnesium Citrate) 296 Ml Solution, 296 ML PO DAILY PRN PRN for CONSTIPATION-2ND LINE Prescribed by: SOFI WEBBER on 04/01/22 1452 Na Phos,M-B/Na Phos,Di-Ba (Fleet Enema) 19 Gram-7 Gram/118 Ml Enema, 133 ML RC DAILY PRN for CONSTIPATION-3RD LINE Prescribed by: SOFI WEBBER on 04/01/22 1452 Ondansetron (Ondansetron Odt) 4 Mg Tab.rapdis, 4 MG PO Q4H Prescribed by: MASSIEL VOGEL on 03/12/221999 Ondansetron (Ondansetron Odt) 4 Mg Tab.rapdis, 4 MG PO Q4H Prescribed by: SOFI WEBBER on 04/01/22 145 Promethazine HCl (Promethazine Tablet) 25 Mg Tablet, 25 MG PO Q6H PRN for NAUSEA/VOMITING Prescribed by: PATRICIA EUCEDA on 02/05/22 1733 Promethazine HCl (Promethazine Tablet) 25 Mg Tablet, 25 MG PO Q6H PRN for NAUSEA/VOMITING Prescribed by: SOFI WEBBER on 03/26/22 1528 Discontinued Medications Magnesium Citrate (Magnesium Citrate) 296 Ml Solution, 296 ML PO DAILY PRN PRN for CONSTIPATION-2ND LINE Prescribed by: SOFI WEBBER on 04/01/22 1430 Na Phos,M-B/Na Phos,Di-Ba (Fleet Enema) 19 Gram-7 Gram/118 Ml Enema, 133 ML RC DAILY PRN PRN for CONSTIPATION-3RD LINE Prescribed by: SOFI WEBBER on 04/01/22 1430 Ondansetron (Ondansetron Odt) 4 Mg Tab.rapdis, 4 MG PO Q4H Prescribed by: SOFI WEBBER on 04/01/22 1430 Review of Systems Review of Systems Constitutional: No chills, No diaphoresis, No malaise, No weakness EENTM: No Blurred Vision, No Eye Pain Cardiovascular: Denies Chest Pain Gastrointestinal: Abdominal Pain, Constipated, Nausea; Denies Rectal Bleeding; Vomiting Genitourinary: Denies Burning, Denies Discharge, Denies Drainage, Denies Frequency Musculoskeletal: back pain; No joint pain Skin: No change in color, No change in hair/nails (RODNEY CAAL) All Other Systems Reviewed Negative Unless Noted: Yes (RODNEY CAAL) Past Kueixxd-Mrvzpv-Puzsbx Hx Past Medical History Surgery/Hospitalization HX: asthma, hx of cervical CA, neuropathy Surgeries: Yes (LEEP, TEETH REMOVED) Gallbladder Respiratory: Yes Asthma Cardiac: No Neurological: Yes (FIBROMYALGIA) Neuropathy Reproductive Disorders: Yes (CERVICAL CANCER) Genitourinary: Yes Bladder Infection Gastrointestinal: Yes Chronic Constipation Musculoskeletal: Yes (CHRONIC GENERALIZED PAIN ) Fibromyalgia Endocrine: No HEENT: Yes (ALL TEETH REMOVED) Cervical Did You Recieve Any Treatments: Yes What Type of Treatment Did You: Surgical Intervention Psychosocial: Yes (POLYSUBSTANCE ABUSE-ALCOHOL + OPIATES) Integumentary: No Blood Disorders: No (RODNEY CAAL) Family Medical History SOCIAL HISTORY: -SMOKES 2 PPD -ETOH--HISTORY OF VERY HEAVY/DAILY USE. CLAIMS NO USE X 7 YEARS, PER PT 03/12/22 -DRUGS--CHRONIC OPIATE USE/ABUSE-NOW ON SUBOXONE PAST SURGICAL HISTORY: -LEEP -CHOLECYSTECTOMY -ALL TEETH REMOVED (RODNEY CAAL) Physical Exam Vital Signs Vital Signs - First Documented 04/01/22 12:15 Temp 36.6 Pulse 92 Resp 18 B/P (MAP) 119/83 (95) Pulse Ox 100 O2 Delivery Room Air (JACQUI PEREZ MD) Vital Signs Capillary Refill : (RODNEY CAAL) Height/Weight/BMI Height: '" Weight: lbs. oz. kg; 28.00 BMI Method: General Appearance: WD/WN, no apparent distress HEENT: PERRL/EOMI, normal ENT inspection, TMs normal, pharynx normal Neck: non-tender, full range of motion, supple, normal inspection Respiratory: chest non-tender, lungs clear, normal breath sounds, no respiratory distress, no accessory muscle use Cardiovascular: regular rate, rhythm, no edema, no gallop, no JVD Gastrointestinal: normal bowel sounds, soft, no organomegaly, no pulsatile mass, tenderness (Left-sided abdominal tenderness) Extremities: normal range of motion, non-tender, normal inspection, no pedal edema, no calf tenderness Back: normal inspection, no CVA tenderness, no vertebral tenderness Neurologic/Psychiatric: car rental deliverer II-XII nml as tested, no motor/sensory deficits, alert, normal mood/affect, oriented x 3 Skin: normal color (RODNEY CAAL) Progress/Results/Core Measures Results/Orders Lab Results Laboratory Tests Test 04/01/22 12:17 04/01/22 12:58 04/01/22 13:06 Range/Units Urine Color YELLOW Urine Clarity SL CLOUDY Urine pH 6.0 5-9 Urine Specific Arnold 1.025 H 1.016-1.022 Urine Protein NEGATIVE NEGATIVE Urine Glucose (UA) NEGATIVE NEGATIVE Urine Ketones NEGATIVE NEGATIVE Urine Nitrite NEGATIVE NEGATIVE Urine Bilirubin NEGATIVE NEGATIVE Urine Urobilinogen 0.2 < = 1.0 MG/DL Urine Leukocyte Esterase NEGATIVE NEGATIVE Urine RBC (Auto) NEGATIVE NEGATIVE Urine RBC NONE /HPF Urine WBC RARE /HPF Urine Squamous Epithelial Cells 2-5 /HPF Urine Crystals NONE /LPF Urine Bacteria TRACE /HPF Urine Casts NONE /LPF Urine Mucus SMALL H /LPF Urine Culture Indicated NO Urine Test NEGATIVE NEGATIVE White Blood Count 5.6 4.3-11.0 10^3/uL Red Blood Count 4.94 3.80-5.11 10^6/uL Hemoglobin 14.8 11.5-16.0 g/dL Hematocrit 43 35-52 % Mean Corpuscular Volume 87 80-99 fL Mean Corpuscular Hemoglobin 30 25-34 pg Mean Corpuscular Hemoglobin Concent 34 32-36 g/dL Red Cell Distribution Width 12.1 10.0-14.5 % Platelet Count 211 130-400 10^3/uL Mean Platelet Volume 9.0 9.0-12.2 fL Immature Granulocyte % (Auto) 0 % Neutrophils (%) (Auto) 53 42-75 % Lymphocytes (%) (Auto) 40 12-44 % Monocytes (%) (Auto) 6 0-12 % Eosinophils (%) (Auto) 1 0-10 % Basophils (%) (Auto) 0 0-10 % Neutrophils # (Auto) 3.0 1.8-7.8 10^3/uL Lymphocytes # (Auto) 2.2 1.0-4.0 10^3/uL Monocytes # (Auto) 0.3 0.0-1.0 10^3/uL Eosinophils # (Auto) 0.1 0.0-0.3 10^3/uL Basophils # (Auto) 0.0 0.0-0.1 10^3/uL Immature Granulocyte # (Auto) 0.0 0.0-0.1 10^3/uL Sodium Level 137 135-145 MMOL/L Potassium Level 4.5 3.6-5.0 MMOL/L Chloride Level 101 98-107 MMOL/L Carbon Dioxide Level 22 21-32 MMOL/L Anion Gap 14 5-14 MMOL/L Blood Urea Nitrogen 12 7-18 MG/DL Creatinine 0.72 0.60-1.30 MG/DL Estimat Glomerular Filtration Rate 114 BUN/Creatinine Ratio 17 Glucose Level 110 H 70-105 MG/DL Calcium Level 9.9 8.5-10.1 MG/DL Corrected Calcium 8.5-10.1 MG/DL Total Bilirubin 0.6 0.1-1.0 MG/DL Aspartate Amino Transf (AST/SGOT) 106 H 5-34 U/L Alanine Aminotransferase (ALT/SGPT) 146 H 0-55 U/L Alkaline Phosphatase 73 40-136 U/L Total Protein 7.7 6.4-8.2 GM/DL Albumin 4.8 H 3.2-4.5 GM/DL Lipase 24 8-78 U/L (JACQUI PEREZ MD) Medications Given in ED Current Medications Medications Dose Ordered Sig/Mani Route Start Time Stop Time Status Last Admin Dose Admin Ondansetron HCl 4 mg ONCE ONCE IVP 04/01/22 12:45 04/01/22 12:46 DC 04/01/22 13:19 4 MG (JACQUI PEREZ MD) Vital Signs/I&O 04/01/22 12:15 Temp 36.6 Pulse 92 Resp 18 B/P (MAP) 119/83 (95) Pulse Ox 100 O2 Delivery Room Air (JACQUI PEREZ MD) Departure Communication (PCP) X-ray of the abdomen shows scruggs colonic constipation. Patient is currently on Suboxone for the past 3 years. She has gradually decreased her Suboxone dose and attempting to get off the Suboxone. She states she attempted to disimpact her self today was successful. IV for nausea. Liter of fluid. history of constipation. Her lab work was otherwise unremarkable. No vomiting here. Was given Zofran she has been taken MiraLAX and Dulcolax. Abdominal x-ray shows constipation. Discussed Dulcolax enema here she refused. She would rather take medication at home. Discussed continue with the MiraLAX and Dulcolax. May cons ider Dulcolax enema instead of the oral medication. If no improvement recommend magnesium citrate bottle over 24-hour period. If no improvement consider Fleet enema. Discussed oral hydration. Recommend high-fiber diet. She is scheduled follow-up with PCP tomorrow. Discussed with patient Suboxone could be related to her constipation. She states she is able to eat but feels like her food is moving up into her mouth. Was able to drink fluids here without any discomfort. Did offer to do a rectal exam she refused. Discussed the importance of staying on laxatives. If no improvement will need further evaluation with EGD or colon oscopy. Provided general surgery outpatient follow-up. (RODNEY CAAL) Impression Primary Impression: Constipation Disposition: 01 HOME, SELF-CARE Condition: Stable Departure-Patient Inst. Decision time for Depature: 14:22 (RODNEY CAAL) Referrals: [facility] NO,LOCAL PHYSICIAN (PCP) Primary Care Physician Patient Instructions: Constipation, Adult (DC) Add. Discharge Instructions: Recommend continue with the Dulcolax 1-3 tabs daily and MiraLAX 1 pack daily. Discussed drinking a full bottle of magnesium citrate. If no bowel movement within 24 hours recommend continue with Fleet enemas until your bowel movements are regulated. Recommend oral hydration with water. Discussed Metamucil fiber supplements to help with bowel movements. Follow-up your primary care physician tomorrow for further evaluation. All discharge instructions reviewed with patient and/or family. Voiced understanding. Scripts Ondansetron (Ondansetron Odt) 4 Mg Tab.rapdis 4 MG PO Q4H, #8 TAB Prov: RODNEY CAAL 04/01/22 Na Phos,M-B/Na Phos,Di-Ba (Fleet Enema) 19 Gram-7 Gram/118 Ml Enema 133 ML RC DAILY PRN for CONSTIPATION-3RD LINE, #3 EA Prov: RODNEY CAAL 04/01/22 Magnesium Citrate (Magnesium Citrate) 296 Ml Solution 296 ML PO DAILY PRN PRN for CONSTIPATION-2ND LINE, #2 EA Prov: RODNEY CAAL 04/01/22 ATTENDING PHYSICIAN NOTE: I was physically present as attending physician in the emergency department dur ing the care of this patient, but I was not directly involved in the decision making or delivery of care for this patient. (JACQUI PEREZ MD) RODNEY CAAL Apr 01, 2022 12:37 JACQUI PEREZ MD Apr 01, 2022 13:47
[2022-04-01 12:40] LABS: BACTERIA,URINE TRACE /HPF; WBC,URINE RARE /HPF
[2022-04-01] MEDS ORDERED: ONDANSETRON 4 MG/2 ML (SDV) Z0FRAN IVP ONE (12:45)
[2022-04-01] MEDS ORDERED: ONDANSETRON 4 MG (ZOFRAN) ORAL DISSOLVE TAB PO ONE (13:00)
[2022-04-01 13:04] LABS: BASOPHILS % (AUTO) 0 % (0-10); EOSINOPHILS # (AUTO) 0.1 10^3/uL (0.0-0.3); EOSINOPHILS % (AUTO) 1 % (0-10); HEMATOCRIT 43 % (35-52); HEMOGLOBIN 14.8 g/dL (11.5-16.0); LYMPHOCYTES # (AUTO) 2.2 10^3/uL (1.0-4.0); LYMPHOCYTES % (AUTO) 40 % (12-44); MEAN CORPUSCULAR HEMOGLOBIN 30 pg (25-34); MEAN CORPUSCULAR HGB CONC 34 g/dL (32-36); MEAN CORPUSCULAR VOLUME 87 fL (80-99); MONOCYTES # (AUTO) 0.3 10^3/uL (0.0-1.0); MONOCYTES % (AUTO) 6 % (0-12); NEUTROPHILS % (AUTO) 53 % (42-75); PLATELET COUNT 211 10^3/uL (130-400); WHITE BLOOD COUNT 5.6 10^3/uL (4.3-11.0)
[2022-04-01 13:12] LABS: ALBUMIN 4.8 GM/DL (3.2-4.5); CHLORIDE 101 MMOL/L (98-107); POTASSIUM 4.5 MMOL/L (3.6-5.0); SODIUM 137 MMOL/L (135-145)
[2022-04-01 13:13] LABS: CALCIUM 9.9 MG/DL (8.5-10.1)
[2022-04-01 13:14] LABS: GLUCOSE 110 MG/DL (70-105); TOTAL PROTEIN 7.7 GM/DL (6.4-8.2)
[2022-04-01 13:15] LABS: CARBON DIOXIDE 22 MMOL/L (21-32)
[2022-04-01 13:16] LABS: BILIRUBIN,TOTAL 0.6 MG/DL (0.1-1.0)
[2022-04-01 13:18] LABS: ALKALINE PHOSPHATASE 73 U/L (40-136); CREATININE SERUM 0.72 MG/DL (0.60-1.30); GFR ESTIMATED 114
[2022-04-01 13:19] LABS: BUN/CREATININE RATIO 17
[2022-04-01 13:21] LABS: ALANINE AMINOTRANSFERASE 146 U/L (0-55); LIPASE 24 U/L (8-78)
--- NOTE | 2022-04-01 13:42 | Diagnostic Imaging Report ---
INDICATION: Abdominal pain, weakness. FINDINGS: There is an elevated colonic fecal load, consistent with mild to moderate scruggs colonic constipation. No rectal impaction. No findings of bowel obstruction. There is a surgical clip in the left hemiabdomen as well as in the right upper quadrant at the gallbladder fossa. IMPRESSION: Scruggs colonic constipation without evidence for impaction or resultant obstruction. Dictated by: Dictated on workstation # [id number]
[2022-04-01] MEDS ORDERED: ONDA4TAB11 PO ×3 (14:30→14:52)
[2022-04-01] MEDS ORDERED: NA P133E22 RC ×3 (14:30→14:52)
[2022-04-01] MEDS ORDERED: MAGN296S71 PO ×3 (14:30→14:52)
[2022-04-01 14:55] VITALS: BP 105/65
== END 2022-04-01 14:55 | disposition home or self-care (01) ==
LOC: EDUNIT# 11:47 → ER 11:50
DX: K59.09 Other constipation (principal); Z79.891 Long term (current) use of opiate analgesic; Z86.16 Personal history of COVID-19; Z87.19 Personal history of other diseases of the digestive system; Z90.49 Acquired absence of other specified parts of digestive tract; Z28.310 Unvaccinated for COVID-19; Z32.02 Encounter for pregnancy test, result negative
CPT/HCPCS: 36415; 74018; 80053; 81000; 83690; 84703; 85025; 87636

== ENCOUNTER 2022-06-01 11:53 | Emergency (ER) | payer MEDICAID ==
[~2022-06-01] VITALS: Ht 147.3 cm; Wt 68.0 kg
[~2022-06-01 11:53] MED LIST changes: +MAGN296S71 PO; +NA P133E22 RC
--- NOTE | 2022-06-01 12:23 | ED Chest Pain ---
General Chief Complaint: Chest Wall Stated Complaint: CHEST PAIN/LEFT ARM/NECK PAIN SOA Nursing Triage Note: arrives to the ed ambulatory to room with a c/o left sided pain in her chest, neck, ribs, and shoulder pain. Source: patient Exam Limitations: no limitations History of Present Illness Date Seen by Provider: Jun 01, 2022 Time Seen by Provider: 12:00 Initial Comments This 31-year-old woman presents to the emergency room with multiple complaints. She primarily complains of a chest discomfort that radiates to her back, neck, and left lateral chest. She rates her pain as 2 out of 10. This has been an ongoing problem for many days. She reports having COVID-19 3 times within the past year with the last episode being in March. She has had problems with this discomfort since then. She describes dyspnea on exertion and worsening discomfort on exertion. Pain seems to be worst in the evenings before going to bed. 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 She has history of abnormal EKG recently as well. She is sometimes diaphoretic with exertion. She is unable to perform some types of exertion such as intercourse due to resulting chest pain. She denies pain with inspiration. She generally feels very fatigued. 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 She reports tachycardia and lightheadednes s after arising and with exertion is a longstanding problem. Her primary care provider is Ibeth at the [facility] medicine clinic. Reports 30 lb weight gain this year. She also complains of asymmetric increase in breast size, right greater than left. Allergies and Home Medications Allergies Coded Allergies: No Known Drug Allergies (Unverified , 02/05/22) Patient Home Medication List Home Medication List Reviewed: Yes Ciprofloxacin HCl (Ciprofloxacin HCl) 500 Mg Tablet, 500 MG PO BID Prescribed by: PATRICIA EUCEDA on 02/05/22 173 Ketorolac Tromethamine (Ketorolac Tromethamine) 10 Mg Tablet, 10 MG PO Q6H Prescribed by: PATRICIA EUCEDA on 02/05/22 175 Magnesium Citrate (Magnesium Citrate) 296 Ml Solution, 296 ML PO DAILY PRN PRN for CONSTIPATION-2ND LINE Prescribed by: SOFI WEBBER on 04/01/22 1452 Na Phos,M-B/Na Phos,Di-Ba (Fleet Enema) 19 Gram-7 Gram/118 Ml Enema, 133 ML RC DAILY PRN for CONSTIPATION-3RD LINE Prescribed by: SOFI WEBBER on 04/01/22 1452 Ondansetron (Ondansetron Odt) 4 Mg Tab.rapdis, 4 MG PO Q4H Prescribed by: MASSIEL VOGEL on 03/12/221999 Ondansetron (Ondansetron Odt) 4 Mg Tab.rapdis, 4 MG PO Q4H Prescribed by: SOFI WEBBER on 04/01/22 145 Promethazine HCl (Promethazine Tablet) 25 Mg Tablet, 25 MG PO Q6H PRN for NAUSEA/VOMITING Prescribed by: PATRICIA EUCEDA on 02/05/22 1733 Promethazine HCl (Promethazine Tablet) 25 Mg Tablet, 25 MG PO Q6H PRN for NAUSEA/VOMITING Prescribed by: SOFI WEBBER on 03/26/22 1528 Review of Systems Review of Systems Constitutional: see HPI EENTM: No Symptoms Reported Respiratory: See HPI Cardiovascular: See HPI Gastrointestinal: No Symptoms Reported Genitourinary: No Symptoms Reported Musculoskeletal: see HPI Skin: no symptoms reported Psychiatric/Neurological: No Symptoms Reported Endocrine: No Symptoms Reported Hematologic/Lymphatic: No Symptoms Reported Past Tckfxoo-Lsdpbe-Vgaica Hx Patient Social History Tobacco Use?: Yes Tobacco type used: Cigarettes Use of E-Cig and/or Vaping dev: No Substance use?: No Alcohol Use?: No Immunizations Up To Date First/Initial COVID19 Vaccinat: denies Past Medical History Surgery/Hospitalization HX: asthma, hx of cervical CA, neuropathy Surgeries: Yes (LEEP, TEETH REMOVED) Gallbladder, Tonsillectomy Respiratory: Yes Asthma Cardiac: Yes High Cholesterol, Palpitations Neurological: Yes (FIBROMYALGIA) Neuropathy : No Last Menstrual Period: May 09, 2022 Reproductive Disorders: Yes (CERVICAL CANCER) Genitourinary: Yes Bladder Infection Gastrointestinal: Yes Gastroesophageal Reflux, Chronic Constipation Musculoskeletal: Yes (CHRONIC GENERALIZED PAIN ) Fibromyalgia Endocrine: No HEENT: Yes (ALL TEETH REMOVED) Cancer: Yes Cervical Did You Recieve Any Treatments: Yes What Type of Treatment Did You: Surgical Intervention Psychosocial: Yes (POLYSUBSTANCE ABUSE-ALCOHOL + OPIATES) Integumentary: No Blood Disorders: No Family Medical History SOCIAL HISTORY: -SMOKES 2 PPD -ETOH--HISTORY OF VERY HEAVY/DAILY USE. CLAIMS NO USE X 7 YEARS, PER PT 03/12/22 -DRUGS--CHRONIC OPIATE USE/ABUSE-NOW ON SUBOXONE PAST SURGICAL HISTORY: -LEEP -CHOLECYSTECTOMY -ALL TEETH REMOVED Physical Exam Vital Signs Vital Signs - First Documented 06/01/22 12:04 Temp 36.8 Pulse 87 Resp 18 B/P (MAP) 114/89 (97) Pulse Ox 99 O2 Delivery Room Air Capillary Refill : Height, Weight, BMI Height: '" Weight: lbs. oz. kg; 31.00 BMI Method: General Appearance: No Apparent Distress, WD/WN HEENT: PERRL/EOMI, Normal ENT Inspection Neck: Normal Inspection, Other Respiratory: Lungs Clear, Normal Breath Sounds, No Accessory Muscle Use, No Respiratory Distress, Other (Mild tenderness around the left chest wall) Cardiovascular: Regular Rate, Rhythm, No Edema, No Murmur Gastrointestinal: Normal Bowel Sounds, Non Tender, Soft Extremity: Normal Inspection, Non Tender, No Calf Tenderness, No Pedal Edema Neurologic/Psychiatric: Alert, Oriented x3, No Motor/Sensory Deficits, Normal Mood/Affect, council member II-XII Norm as Tested Skin: Normal Color, Warm/Dry Other comments Breast exam performed with female nurse medical assistant per diem. Breasts normal to inspection with no palpable masses and no associated axillary or supraclavicular lymphadenopathy. Right breast slightly larger than the left. Progress/Results/Core Measures Results/Orders Lab Results Laboratory Tests Test 06/01/22 12:33 06/01/22 13:14 Range/Units White Blood Count 5.3 4.3-11.0 10^3/uL Red Blood Count 4.40 3.80-5.11 10^6/uL Hemoglobin 13.4 11.5-16.0 g/dL Hematocrit 39 35-52 % Mean Corpuscular Volume 88 80-99 fL Mean Corpuscular Hemoglobin 31 25-34 pg Mean Corpuscular Hemoglobin Concent 35 32-36 g/dL Red Cell Distribution Width 11.8 10.0-14.5 % Platelet Count 214 130-400 10^3/uL Mean Platelet Volume 9.2 9.0-12.2 fL Immature Granulocyte % (Auto) 0 % Neutrophils (%) (Auto) 49 42-75 % Lymphocytes (%) (Auto) 45 H 12-44 % Monocytes (%) (Auto) 5 0-12 % Eosinophils (%) (Auto) 1 0-10 % Basophils (%) (Auto) 0 0-10 % Neutrophils # (Auto) 2.6 1.8-7.8 10^3/uL Lymphocytes # (Auto) 2.4 1.0-4.0 10^3/uL Monocytes # (Auto) 0.3 0.0-1.0 10^3/uL Eosinophils # (Auto) 0.1 0.0-0.3 10^3/uL Basophils # (Auto) 0.0 0.0-0.1 10^3/uL Immature Granulocyte # (Auto) 0.0 0.0-0.1 10^3/uL Prothrombin Time 12.9 12.2-14.7 SEC INR Comment 0.9 0.8-1.4 Activated Partial Thromboplast Time 32 24-35 SEC D-Dimer < 0.27 0.00-0.49 UG/ML Sodium Level 140 135-145 MMOL/L Potassium Level 4.0 3.6-5.0 MMOL/L Chloride Level 105 98-107 MMOL/L Carbon Dioxide Level 21 21-32 MMOL/L Anion Gap 14 5-14 MMOL/L Blood Urea Nitrogen 14 7-18 MG/DL Creatinine 0.73 0.60-1.30 MG/DL Estimat Glomerular Filtration Rate 112 BUN/Creatinine Ratio 19 Glucose Level 149 H 70-105 MG/DL Calcium Level 9.3 8.5-10.1 MG/DL Corrected Calcium 8.5-10.1 MG/DL Magnesium Level 1.9 1.6-2.4 MG/DL Total Bilirubin 0.3 0.1-1.0 MG/DL Aspartate Amino Transf (AST/SGOT) 26 5-34 U/L Alanine Aminotransferase (ALT/SGPT) 49 0-55 U/L Alkaline Phosphatase 49 40-136 U/L Myoglobin 25.2 10.0-92.0 NG/ML Troponin I < 0.028 <0.028 NG/ML C-Reactive Protein High Sensitivity 0.28 0.00-0.50 MG/DL B-Type Natriuretic Peptide < 10.0 <100.0 PG/ML Total Protein 7.0 6.4-8.2 GM/DL Albumin 4.6 H 3.2-4.5 GM/DL TSH Beltrami Testing 0.75 0.35-4.94 UIU/ML Serum Test, Qualitative NEGATIVE NEGATIVE Urine Color YELLOW Urine Clarity CLEAR Urine pH 6.5 5-9 Urine Specific [place] 1.015 L 1.016-1.022 Urine Protein NEGATIVE NEGATIVE Urine Glucose (UA) NEGATIVE NEGATIVE Urine Ketones NEGATIVE NEGATIVE Urine Nitrite NEGATIVE NEGATIVE Urine Bilirubin NEGATIVE NEGATIVE Urine Urobilinogen 0.2 < = 1.0 MG/DL Urine Leukocyte Esterase NEGATIVE NEGATIVE Urine RBC (Auto) NEGATIVE NEGATIVE Urine RBC NONE /HPF Urine WBC 0-2 /HPF Urine Squamous Epithelial Cells 2-5 /HPF Urine Crystals NONE /LPF Urine Bacteria NEGATIVE /HPF Urine Casts NONE /LPF Urine Mucus NEGATIVE /LPF Urine Culture Indicated NO My Orders Orders - JACQUI PEREZ MD Ekg Tracing (06/01/22 11:58) Monitor-Rhythm Ecg Trace Only (06/01/22 11:58) Cbc With Automated Diff (06/01/22 12:20) Magnesium (06/01/22 12:20) Chest 1 View, Ap/Pa Only (06/01/22 12:20) Comprehensive Metabolic Panel (06/01/22 12:20) Myoglobin Serum (06/01/22 12:20) Protime With Inr (06/01/22 12:20) Partial Thromboplastin Time (06/01/22 12:20) O2 (06/01/22 12:20) Ed Iv/Invasive Line Start (06/01/22 12:20) Bnp Giovanni (06/01/22 12:20) Fibrin Degradation Products (06/01/22 12:20) Troponin I Giovanni (06/01/22 12:20) Hs C Reactive Protein (06/01/22 12:20) Hcg,Qualitative Serum (06/01/22 12:20) Thyroid Analyzer (06/01/22 12:20) Ua Culture If Indicated (06/01/22 12:20) Vital Signs/I&O 06/01/22 06/01/22 12:04 14:45 Temp 36.8 36.5 Pulse 87 64 Resp 18 18 B/P (MAP) 114/89 (97) 108/63 Pulse Ox 99 98 O2 Delivery Room Air Room Air Blood Pressure Mean: 97 Progress Progress Note : Progress Note Work-up was grossly unremarkable. There were no significant findings on exam either. Further evaluation should be pursued with primary care provider and consultation with a food or baggage handling rampman. See discharge instructions for further discussion. Initial ECG Impression Date: Jun 01, 2022 Initial ECG Impression Time: 11:59 Initial ECG Rate: 78 Initial ECG Rhythm: Normal Sinus Initial ECG Intervals: Normal Initial ECG Impression: Normal Comment Normal sinus rhythm with no ST elevation or depression. No abnormal intervals or axis deviation. Diagnostic Imaging Diagonstic Imaging: Xray Plain Films/CT/US/NM/MRI: chest Comments NAME: ELIEL MANDEL [facility] REC#: [id number] PT STATUS: REG ER : 1990 PHYSICIAN: JACQUI PEREZ MD ADMIT DATE: 06/01/22/ER Signed Date of Exam:06/01/22 CHEST 1 VIEW, AP/PA ONLY EXAMINATION: Chest radiograph, portable AP view. DATE: 06/01/2022 12:47 PM INDICATION: 31-year-old female, left-sided chest pain. COMPARISON: March 26, 2022. FINDINGS: Heart size and mediastinal contours are unchanged. There is no identified pneumothorax. There is no large pleural effusion. There is no identified focal airspace consolidation. IMPRESSION: 1. No identified acute cardiopulmonary abnormality. Dictated by: Dictated on workstation # [id number] Dict: 06/01/22 1248 Trans: 06/01/22 1307 [facility] [id number] Interpreted by: LANEY BOSS MD Electronically signed by: LANEY BOSS MD 06/01/22 1307 Reviewed: Reviewed by Me Departure Impression Primary Impression: Atypical chest pain Additional Impressions: Fatigue Qualified Codes: R53.83 - Other fatigue Shortness of breath Disposition: 01 HOME, SELF-CARE Condition: Stable Departure-Patient Inst. Decision time for Depature: 13:56 Referrals: EBONI CONN MD [facility] JULIANA BURNS MD NO,LOCAL PHYSICIAN (PCP) Primary Care Physician BARTOLO GALLEGOS JR, MD Patient Instructions: Chest Pain Add. Discharge Instructions: Follow-up with your primary care provider and a food or baggage handling rampman as soon as possible. You may need a referral from the primary care provider to see the food or baggage handling rampman. A list of food or baggage handling rampman is provided below. You may use Tylenol and/or ibuprofen for pain if it is helpful. You may also use gentle heat, gentle stretching, etc. Drink plenty of clear liquids and eat a well balanced diet. Continue to work on quitting smoking. Return to the emergency room if you have worsening condition that you believe may be unstable and cannot wait for outpatient evaluation. Call your primary care provider with questions or concerns. All discharge instructions reviewed with patient and/or family. Voiced understanding. JACQUI PEREZ MD Jun 01, 2022 12:23
[2022-06-01 12:42] LABS: BASOPHILS % (AUTO) 0 % (0-10); EOSINOPHILS # (AUTO) 0.1 10^3/uL (0.0-0.3); EOSINOPHILS % (AUTO) 1 % (0-10); HEMATOCRIT 39 % (35-52); HEMOGLOBIN 13.4 g/dL (11.5-16.0); LYMPHOCYTES # (AUTO) 2.4 10^3/uL (1.0-4.0); LYMPHOCYTES % (AUTO) 45 % (12-44); MEAN CORPUSCULAR HEMOGLOBIN 31 pg (25-34); MEAN CORPUSCULAR HGB CONC 35 g/dL (32-36); MEAN CORPUSCULAR VOLUME 88 fL (80-99); MEAN PLATELET VOLUME 9.2 fL (9.0-12.2); MONOCYTES # (AUTO) 0.3 10^3/uL (0.0-1.0); MONOCYTES % (AUTO) 5 % (0-12); NEUTROPHILS # (AUTO) 2.6 10^3/uL (1.8-7.8); NEUTROPHILS % (AUTO) 49 % (42-75); PLATELET COUNT 214 10^3/uL (130-400); WHITE BLOOD COUNT 5.3 10^3/uL (4.3-11.0)
[2022-06-01 12:53] LABS: ALBUMIN 4.6 GM/DL (3.2-4.5); CHLORIDE 105 MMOL/L (98-107); SODIUM 140 MMOL/L (135-145)
--- NOTE | 2022-06-01 12:53 | Diagnostic Imaging Report ---
EXAMINATION: Chest radiograph, portable AP view. DATE: 06/01/2022 12:47 PM INDICATION: 31-year-old female, left-sided chest pain. COMPARISON: March 26, 2022. FINDINGS: Heart size and mediastinal contours are unchanged. There is no identified pneumothorax. There is no large pleural effusion. There is no identified focal airspace consolidation. IMPRESSION: 1. No identified acute cardiopulmonary abnormality. Dictated by: Dictated on workstation # [id number]
[2022-06-01 12:54] LABS: CALCIUM 9.3 MG/DL (8.5-10.1)
[2022-06-01 12:55] LABS: GLUCOSE 149 MG/DL (70-105)
[2022-06-01 12:57] LABS: BILIRUBIN,TOTAL 0.3 MG/DL (0.1-1.0); CARBON DIOXIDE 21 MMOL/L (21-32)
[2022-06-01 12:58] LABS: INR 0.9 (0.8-1.4); PROTHROMBIN TIME PATIENT 12.9 SEC (12.2-14.7)
[2022-06-01 12:59] LABS: ALKALINE PHOSPHATASE 49 U/L (40-136); CREATININE SERUM 0.73 MG/DL (0.60-1.30); GFR ESTIMATED 112
[2022-06-01 13:00] LABS: BUN/CREATININE RATIO 19
[2022-06-01 13:02] LABS: ALANINE AMINOTRANSFERASE 49 U/L (0-55); MAGNESIUM 1.9 MG/DL (1.6-2.4)
[2022-06-01 13:22] LABS: TSH (THYROID ANALYZER) 0.75 UIU/ML (0.35-4.94)
[2022-06-01 13:24] LABS: BILIRUBIN,URINE NEGATIVE (NEGATIVE); CLARITY,URINE CLEAR; COLOR,URINE YELLOW; GLUCOSE, URINE (UA) NEGATIVE (NEGATIVE); KETONES,URINE NEGATIVE (NEGATIVE); LEUKOCYTE ESTERASE ,URINE NEGATIVE (NEGATIVE); NITRITE,URINE NEGATIVE (NEGATIVE); PH,URINE 6.5 (5-9); PROTEIN,URINE NEGATIVE (NEGATIVE)
[2022-06-01 13:44] LABS: BACTERIA,URINE NEGATIVE /HPF; WBC,URINE 0-2 /HPF
[2022-06-01 14:45] VITALS: BP 108/63
== END 2022-06-01 14:45 | disposition home or self-care (01) ==
LOC: EDUNIT# 11:53 → ER 11:56
DX: R07.89 Other chest pain (principal); R53.83 Other fatigue; R06.02 Shortness of breath; F17.210 Nicotine dependence, cigarettes, uncomplicated; Z28.310 Unvaccinated for COVID-19
CPT/HCPCS: 36415; 71045; 80053; 81000; 83735; 83874; 83880; 84443; 84484; 84703; 85025; 85379; 85610; 85730; 86141; 93005; 93041

== ENCOUNTER 2022-06-03 16:28 | Emergency (ER) | payer MEDICAID ==
--- NOTE | 2022-06-03 16:39 | ED Chest Pain ---
General Chief Complaint: Chest Pain Stated Complaint: CHEST PAIN Nursing Triage Note: PT BROUGHT IN BY [facility] FROM HOME WITH COMPLAINT OF CHEST PAIN. STATES HAS BEEN GOING ON FOR A FEW DAYS. WAS SEEN IN [place] TWO DAYS AGO. TODAY HER HR WAS ELEVATED IN THE 120s. STATES RADIATES TO THROAT AND LEFT SHOULDER. Source: patient Exam Limitations: no limitations History of Present Illness Date Seen by Provider: Jun 03, 2022 Time Seen by Provider: 16:37 Initial Comments To ER by EMS from home with reports of left-sided chest pain. She has been dealing with this for few days. Heart rate was elevated in the 120s sinus. She also had some tightness in her throat and left shoulder. The tightness began after taking Linzess which she started yesterday. Timing/Duration: changing over time Severity/Quality: moderate Location: central Radiation: no radiation Activities at Onset: none Prior CP/Workup: no prior chest pain ASA po INCIDENT ANALYST: No NTG SL INCIDENT ANALYST: No Associated Symptoms: denies symptoms Allergies and Home Medications Allergies Coded Allergies: No Known Drug Allergies (Unverified , 02/05/22) Patient Home Medication List Home Medication List Reviewed: Yes Ciprofloxacin HCl (Ciprofloxacin HCl) 500 Mg Tablet, 500 MG PO BID Prescribed by: PATRICIA EUCEDA on 02/05/22 173 Ketorolac Tromethamine (Ketorolac Tromethamine) 10 Mg Tablet, 10 MG PO Q6H Prescribed by: PATRICIA EUCEDA on 02/05/22 175 Magnesium Citrate (Magnesium Citrate) 296 Ml Solution, 296 ML PO DAILY PRN PRN for CONSTIPATION-2ND LINE Prescribed by: SOFI WEBBER on 04/01/22 145 Na Phos,M-B/Na Phos,Di-Ba (Fleet Enema) 19 Gram-7 Gram/118 Ml Enema, 133 ML RC DAILY PRN for CONSTIPATION-3RD LINE Prescribed by: SOFI WEBBER on 04/01/22 145 Ondansetron (Ondansetron Odt) 4 Mg Tab.rapdis, 4 MG PO Q4H Prescribed by: MASSIEL VOGEL on 03/12/221999 Ondansetron (Ondansetron Odt) 4 Mg Tab.rapdis, 4 MG PO Q4H Prescribed by: SOFI WEBBER on 04/01/22 1452 Promethazine HCl (Promethazine Tablet) 25 Mg Tablet, 25 MG PO Q6H PRN for NAUSEA/VOMITING Prescribed by: PATRICIA EUCEDA on 02/05/22 1733 Promethazine HCl (Promethazine Tablet) 25 Mg Tablet, 25 MG PO Q6H PRN for NAUSEA/VOMITING Prescribed by: SOFI WEBBER on 03/26/22 1528 Review of Systems Review of Systems Constitutional: see HPI EENTM: No Symptoms Reported Respiratory: No Symptoms Reported Cardiovascular: See HPI, Chest Pain Gastrointestinal: No Symptoms Reported Genitourinary: No Symptoms Reported Musculoskeletal: no symptoms reported Skin: no symptoms reported Psychiatric/Neurological: No Symptoms Reported Endocrine: No Symptoms Reported Hematologic/Lymphatic: No Symptoms Reported Past Hzthxjs-Lcypjy-Obtgzk Hx Patient Social History Tobacco Use?: No Smoking Status: Former Smoker Use of E-Cig and/or Vaping dev: No Substance use?: No Alcohol Use?: No Pt feels they are or have been: No Immunizations Up To Date First/Initial COVID19 Vaccinat: denies Second COVID19 Vaccination Akin: denies Third COVID19 Vaccination Date: denies Past Medical History Surgery/Hospitalization HX: asthma, hx of cervical CA, neuropathy Surgery;tonsils and gallbladder removal. Surgeries: Yes (LEEP, TEETH REMOVED) Gallbladder, Tonsillectomy Respiratory: Yes Asthma Cardiac: Yes High Cholesterol, Palpitations Neurological: Yes (FIBROMYALGIA) Neuropathy Reproductive Disorders: Yes (CERVICAL CANCER) Genitourinary: Yes Bladder Infection Gastrointestinal: Yes Gastroesophageal Reflux, Chronic Constipation Musculoskeletal: Yes (CHRONIC GENERALIZED PAIN ) Fibromyalgia Endocrine: No HEENT: Yes (ALL TEETH REMOVED) Cancer: Yes Cervical Did You Recieve Any Treatments: Yes What Type of Treatment Did You: Surgical Intervention Psychosocial: Yes (POLYSUBSTANCE ABUSE-ALCOHOL + OPIATES) Integumentary: No Blood Disorders: No Family Medical History SOCIAL HISTORY: -SMOKES 2 PPD -ETOH--HISTORY OF VERY HEAVY/DAILY USE. CLAIMS NO USE X 7 YEARS, PER PT 03/12/22 -DRUGS--CHRONIC OPIATE USE/ABUSE-NOW ON SUBOXONE PAST SURGICAL HISTORY: -LEEP -CHOLECYSTECTOMY -ALL TEETH REMOVED Physical Exam Vital Signs Vital Signs - First Documented 06/03/22 16:31 Pulse 94 Resp 16 B/P (MAP) 129/76 (93) Pulse Ox 98 O2 Delivery Room Air Capillary Refill : Less Than 3 Seconds Height, Weight, BMI Height: '" Weight: lbs. oz. kg; 31.00 BMI Method: General Appearance: No Apparent Distress, WD/WN Neck: Full Range of Motion, Normal Inspection Respiratory: No Accessory Muscle Use, No Respiratory Distress Cardiovascular: Regular Rate, Rhythm, Normal Peripheral Pulses Gastrointestinal: Normal Bowel Sounds, Non Tender, Soft Extremity: Normal Capillary Refill, Normal Inspection Neurologic/Psychiatric: Alert, Oriented x3 Skin: Normal Color, Warm/Dry Progress/Results/Core Measures Results/Orders Lab Results Laboratory Tests Test 06/03/22 16:45 Range/Units White Blood Count 6.9 4.3-11.0 10^3/uL Red Blood Count 4.52 3.80-5.11 10^6/uL Hemoglobin 13.6 11.5-16.0 g/dL Hematocrit 40 35-52 % Mean Corpuscular Volume 88 80-99 fL Mean Corpuscular Hemoglobin 30 25-34 pg Mean Corpuscular Hemoglobin Concent 34 32-36 g/dL Red Cell Distribution Width 11.7 10.0-14.5 % Platelet Count 222 130-400 10^3/uL Mean Platelet Volume 9.2 9.0-12.2 fL Immature Granulocyte % (Auto) 0 % Neutrophils (%) (Auto) 39 L 42-75 % Lymphocytes (%) (Auto) 52 H 12-44 % Monocytes (%) (Auto) 8 0-12 % Eosinophils (%) (Auto) 1 0-10 % Basophils (%) (Auto) 0 0-10 % Neutrophils # (Auto) 2.7 1.8-7.8 10^3/uL Lymphocytes # (Auto) 3.6 1.0-4.0 10^3/uL Monocytes # (Auto) 0.5 0.0-1.0 10^3/uL Eosinophils # (Auto) 0.1 0.0-0.3 10^3/uL Basophils # (Auto) 0.0 0.0-0.1 10^3/uL Immature Granulocyte # (Auto) 0.0 0.0-0.1 10^3/uL Prothrombin Time 12.7 12.2-14.7 SEC INR Comment 0.9 0.8-1.4 Activated Partial Thromboplast Time 31 24-35 SEC D-Dimer 0.34 0.00-0.49 UG/ML Sodium Level 142 135-145 MMOL/L Potassium Level 3.7 3.6-5.0 MMOL/L Chloride Level 104 98-107 MMOL/L Carbon Dioxide Level 24 21-32 MMOL/L Anion Gap 14 5-14 MMOL/L Blood Urea Nitrogen 17 7-18 MG/DL Creatinine 0.71 0.60-1.30 MG/DL Estimat Glomerular Filtration Rate 116 BUN/Creatinine Ratio 24 Glucose Level 101 70-105 MG/DL Calcium Level 9.7 8.5-10.1 MG/DL Corrected Calcium 8.5-10.1 MG/DL Magnesium Level 1.7 1.6-2.4 MG/DL Total Bilirubin 0.4 0.1-1.0 MG/DL Aspartate Amino Transf (AST/SGOT) 31 5-34 U/L Alanine Aminotransferase (ALT/SGPT) 55 0-55 U/L Alkaline Phosphatase 55 40-136 U/L Myoglobin 16.6 10.0-92.0 NG/ML Troponin I < 0.028 <0.028 NG/ML B-Type Natriuretic Peptide < 10.0 <100.0 PG/ML Total Protein 7.0 6.4-8.2 GM/DL Albumin 4.6 H 3.2-4.5 GM/DL My Orders Orders - KRISTINE HOROWITZ APRN Cbc With Automated Diff (06/03/22 16:35) Magnesium (06/03/22 16:35) Chest 1 View, Ap/Pa Only (06/03/22 16:35) Ekg Tracing (06/03/22 16:35) Comprehensive Metabolic Panel (06/03/22 16:35) Myoglobin Serum (06/03/22 16:35) Protime With Inr (06/03/22 16:35) Partial Thromboplastin Time (06/03/22 16:35) O2 (06/03/22 16:35) Monitor-Rhythm Ecg Trace Only (06/03/22 16:35) Lipid Panel (06/04/22 06:00) Ed Iv/Invasive Line Start (06/03/22 16:35) Bnp Holt (06/03/22 16:35) Troponin I Giovanni (06/03/22 16:35) Lactated Ringers (Lr 1000 Ml Iv Solution (06/03/22 16:45) Lorazepam Injection (Ativan Injection) (06/03/22 16:45) Fibrin Degradation Products (06/03/22 16:36) Medications Given in ED Current Medications Medications Dose Ordered Sig/Mani Route Start Time Stop Time Status Last Admin Dose Admin Lorazepam 1 mg ONCE ONCE IVP 06/03/22 16:45 06/03/22 16:46 DC 06/03/22 16:56 1 MG Vital Signs/I&O 06/03/22 16:31 Pulse 94 Resp 16 B/P (MAP) 129/76 (93) Pulse Ox 98 O2 Delivery Room Air Blood Pressure Mean: 93 Departure Impression Primary Impression: Chest pain Disposition: HOME, SELF-CARE Condition: Stable Departure-Patient Inst. Decision time for Depature: 16:39 Referrals: NO,LOCAL PHYSICIAN (PCP/Family) Primary Care Physician Patient Instructions: Chest Pain (DC) Add. Discharge Instructions: 1. Return to ER for any concerns. Follow-up with your doctor next week for any worsening. All discharge instructions reviewed with patient and/or family. Voiced understanding. KRISTINE HOROWITZ [employer] Jun 03, 2022 16:39
[2022-06-03] MEDS ORDERED: LACTATED RINGERS 1,000 ML IV SCH (16:45)
[2022-06-03] MEDS ORDERED: LORazepam INJ 2 MG/ML (ATIVAN) VIAL IVP ONE (16:45)
[2022-06-03 16:54] LABS: BASOPHILS % (AUTO) 0 % (0-10); EOSINOPHILS # (AUTO) 0.1 10^3/uL (0.0-0.3); EOSINOPHILS % (AUTO) 1 % (0-10); HEMATOCRIT 40 % (35-52); HEMOGLOBIN 13.6 g/dL (11.5-16.0); LYMPHOCYTES # (AUTO) 3.6 10^3/uL (1.0-4.0); LYMPHOCYTES % (AUTO) 52 % (12-44); MEAN CORPUSCULAR HEMOGLOBIN 30 pg (25-34); MEAN CORPUSCULAR HGB CONC 34 g/dL (32-36); MEAN CORPUSCULAR VOLUME 88 fL (80-99); MEAN PLATELET VOLUME 9.2 fL (9.0-12.2); MONOCYTES # (AUTO) 0.5 10^3/uL (0.0-1.0); MONOCYTES % (AUTO) 8 % (0-12); NEUTROPHILS # (AUTO) 2.7 10^3/uL (1.8-7.8); NEUTROPHILS % (AUTO) 39 % (42-75); PLATELET COUNT 222 10^3/uL (130-400); WHITE BLOOD COUNT 6.9 10^3/uL (4.3-11.0)
[2022-06-03 17:06] LABS: ALBUMIN 4.6 GM/DL (3.2-4.5); CHLORIDE 104 MMOL/L (98-107); POTASSIUM 3.7 MMOL/L (3.6-5.0); SODIUM 142 MMOL/L (135-145)
[2022-06-03 17:07] LABS: CALCIUM 9.7 MG/DL (8.5-10.1)
--- NOTE | 2022-06-03 17:07 | Diagnostic Imaging Report ---
EXAMINATION: Chest, one view. HISTORY: Chest pain. COMPARISON: 06/01/2022. FINDINGS: The lungs are clear without edema or pneumonia. No pleural effusion or pneumothorax. Heart size is normal. IMPRESSION: 1. Clear lungs. Dictated by: Dictated on workstation # [id number]
[2022-06-03 17:08] LABS: GLUCOSE 101 MG/DL (70-105)
[2022-06-03 17:09] LABS: CARBON DIOXIDE 24 MMOL/L (21-32)
[2022-06-03 17:10] LABS: BILIRUBIN,TOTAL 0.4 MG/DL (0.1-1.0)
[2022-06-03 17:12] LABS: ALKALINE PHOSPHATASE 55 U/L (40-136); CREATININE SERUM 0.71 MG/DL (0.60-1.30); GFR ESTIMATED 116
[2022-06-03 17:13] LABS: BUN/CREATININE RATIO 24
[2022-06-03 17:14] LABS: MAGNESIUM 1.7 MG/DL (1.6-2.4)
[2022-06-03 17:15] LABS: ALANINE AMINOTRANSFERASE 55 U/L (0-55)
[2022-06-03 17:32] LABS: INR 0.9 (0.8-1.4); PROTHROMBIN TIME PATIENT 12.7 SEC (12.2-14.7)
[2022-06-03] MEDS ORDERED: RX-LORAZEPAM (ATIVAN) 0.5 MG TAB PPK#4 PO STA (17:52)
[2022-06-03] MEDS ORDERED: METO-351 PO (17:52)
[2022-06-03 18:00] VITALS: BP 107/67
== END 2022-06-03 18:00 | disposition home or self-care (01) ==
LOC: EDUNIT# 16:28 → ER 16:29
DX: R07.89 Other chest pain (principal); Z87.891 Personal history of nicotine dependence; Z28.310 Unvaccinated for COVID-19
CPT/HCPCS: 36415; 71045; 80053; 83735; 83874; 83880; 84484; 85025; 85379; 85610; 85730; 93005; 93041

== ENCOUNTER → 2022-06-25 | Outpatient (CLI) | payer MEDICAID ==
[~2022-06-25] MED LIST changes: +METO-351 PO
[2022-06-25 12:06] VITALS: BP 128/82
== END ==
LOC: CARD 10:30
PROVIDERS: ATTEND Internal Medicine Cardiovascular Disease
DX: R06.09 Other forms of dyspnea (principal)
CPT/HCPCS: 93225; 93226; 93306

== ENCOUNTER 2022-09-03 15:35 | Emergency (ER) | payer MEDICAID ==
[~2022-09-03] VITALS: Ht 157 cm; Wt 68.0 kg
[~2022-09-03 15:35] MED LIST changes: +MAGN296S68 PO; -MAGN296S71 PO
[2022-09-03] MEDS ORDERED: FAMOTIDINE 20MG/2ML IV (PEPCID) IV STA (16:02)
--- NOTE | 2022-09-03 16:13 | ED Abdominal Pain ---
General Chief Complaint: Abdominal/GI Problems Stated Complaint: ABD PAIN Source of Information: Patient Exam Limitations: No Limitations History of Present Illness Date Seen by Provider: Sep 03, 2022 Time Seen by Provider: 15:39 Initial Comments 31-year-old female resents today via EMS with complaints of abdominal pain. Patient reports that her family recently had symptoms of nausea vomiting. She reports she started having nausea about 4 to 5 days ago, and started vomiting and having abdominal pain 2 to 3 days ago. She reports she last vomited 2 days ago but still feels nauseous. Reports the pain became much worse yesterday. She states she has a burning pain in her upper abdomen, and has pain in her left upper quadrant and left flank. Patient reports fever and chills. Patient denies dysuria. She reports she takes Suboxone for chronic pain which causes constipation. Patient reports she takes Linzess to help counteract the constipation. Patient states that the last couple days she has not been taking her medications due to not feeling well, but she restarted her Linzess and Subo xone this morning. Patient reports taking Zofran at 9am, Colace, Protonix at 11 am, probiotic, Tylenol at 1500 with no relief. Patient reports she did an enema this morning which resulted in hard stool. Patient states she is unsure when her last bowel movement was prior to the enema. States she often goes a long time without having a bowel movement due to the Suboxone. Severity/Quality: Severe Location: LLQ, Epigastric, Flank Modifying Factors: Worsens With Movement Associated Symptoms: Fever/Chills, Heartburn, Nausea/Vomiting Allergies and Home Medications Allergies Coded Allergies: No Known Drug Allergies (Unverified , 02/05/22) Patient Home Medication List Home Medication List Reviewed: Yes [facility] ([facility]fl[facility]) 500 [facility] Prescribed by: Jane Chacon on 09/03/221938 Ciprofloxacin HCl (Ciprofloxacin HCl) 500 Mg Tablet, 500 MG PO BID Prescribed by: PATRICIA EUCEDA on 02/05/221732 Famotidine (Pepcid) 20 Mg Tablet, 20 MG PO BID Prescribed by: Jane Chacon on 09/03/221938 Ketorolac Tromethamine (Ketorolac Tromethamine) 10 Mg Tablet, 10 MG PO Q6H Prescribed by: PATRICIA EUCEDA on 02/05/22 1758 Ketorolac Tromethamine (Ketorolac Tromethamine) 10 Mg Tablet, 10 MG PO TID Prescribed by: Jane Chacon on 09/03/22 193 Magnesium Citrate (Magnesium Citrate) 296 Ml Solution, 296 ML PO DAILY PRN PRN for CONSTIPATION-2ND LINE Prescribed by: SOFI WEBBER on 04/01/22 1452 Metoprolol Succinate (Toprol Xl) 25 Mg Tab.er.24h, 25 MG PO DAILY Prescribed by: KRISTINE HOROWITZ on 06/03/22 1752 Na Phos,M-B/Na Phos,Di-Ba (Fleet Enema) 19 Gram-7 Gram/118 Ml Enema, 133 ML RC DAILY PRN for CONSTIPATION-3RD LINE Prescribed by: SOFI WEBBER on 04/01/22 145 Ondansetron (Ondansetron Odt) 4 Mg Tab.rapdis, 4 MG PO Q4H Prescribed by: MASSIEL VOGEL on 03/12/221999 Ondansetron (Ondansetron Odt) 4 Mg Tab.rapdis, 4 MG PO Q4H Prescribed by: SOFI WEBBER on 04/01/22 145 Promethazine HCl (Promethazine Tablet) 25 Mg Tablet, 25 MG PO Q6H PRN for NAUSE A/VOMITING Prescribed by: PATRICIA EUCEDA on 02/05/22 1733 Promethazine HCl (Promethazine Tablet) 25 Mg Tablet, 25 MG PO Q6H PRN for NAUSEA/VOMITING Prescribed by: SOFI WEBBER on 03/26/22 1528 Review of Systems Review of Systems Constitutional: chills, fever Respiratory: No Symptoms Reported Cardiovascular: No Symptoms Reported Gastrointestinal: Abdominal Pain, Constipated, Nausea, Vomiting Genitourinary: No Symptoms Reported; Denies Burning Past Wbneymw-Kpxqtr-Zbtgxf Hx Immunizations Up To Date First/Initial COVID19 Vaccinat: denies Second COVID19 Vaccination Akin: denies Third COVID19 Vaccination Date: denies Past Medical History Surgery/Hospitalization HX: asthma, hx of cervical CA, neuropathy Surgery;tonsils and gallbladder removal. Surgeries: Yes (LEEP, TEETH REMOVED) Gallbladder, Tonsillectomy Respiratory: Yes Asthma Cardiac: Yes High Cholesterol, Palpitations Neurological: Yes (FIBROMYALGIA) Neuropathy Reproductive Disorders: Yes (CERVICAL CANCER) Genitourinary: Yes Bladder Infection Gastrointestinal: Yes Gastroesophageal Reflux, Chronic Constipation Musculoskeletal: Yes (CHRONIC GENERALIZED PAIN ) Fibromyalgia Endocrine: No HEENT: Yes (ALL TEETH REMOVED) Cancer: Yes Cervical Did You Recieve Any Treatments: Yes What Type of Treatment Did You: Surgical Intervention Psychosocial: Yes (POLYSUBSTANCE ABUSE-ALCOHOL + OPIATES) Integumentary: No Blood Disorders: No Family Medical History SOCIAL HISTORY: -SMOKES 2 PPD -ETOH--HISTORY OF VERY HEAVY/DAILY USE. CLAIMS NO USE X 7 YEARS, PER PT 03/12/22 -DRUGS--CHRONIC OPIATE USE/ABUSE-NOW ON SUBOXONE PAST SURGICAL HISTORY: -LEEP -CHOLECYSTECTOMY -ALL TEETH REMOVED Physical Exam Vital Signs Vital Signs - First Documented 09/03/22 15:35 Temp 36.3 Pulse 103 Resp 18 B/P (MAP) 121/88 (99) Pulse Ox 98 O2 Delivery Room Air Capillary Refill : Height/Weight/BMI Height: '" Weight: lbs. oz. kg; 31.00 BMI Method: General Appearance: moderate distress Neck: supple, normal inspection Respiratory: chest non-tender, lungs clear, normal breath sounds, no respiratory distress, no accessory muscle use Cardiovascular: regular rate, rhythm, no edema, no gallop, no JVD, no murmur Gastrointestinal: normal bowel sounds, soft, no organomegaly, no pulsatile mass, guarding, rebound (LLQ), tenderness (LL and LUQ) Neurologic/Psychiatric: alert, normal mood/affect, oriented x 3 Skin: normal color, warm/dry Progress/Results/Core Measures Results/Orders Lab Results Laboratory Tests Test 09/03/22 15:50 09/03/22 16:00 09/03/22 16:33 Range/Units Influenza Type A (RT-PCR) Not Detected Not Detecte Influenza Type B (RT-PCR) Not Detected Not Detecte SARS-CoV-2 RNA (RT-PCR) Not Detected Not Detecte White Blood Count 5.4 4.3-11.0 10^3/uL Red Blood Count 4.92 3.80-5.11 10^6/uL Hemoglobin 14.5 11.5-16.0 g/dL Hematocrit 43 35-52 % Mean Corpuscular Volume 87 80-99 fL Mean Corpuscular Hemoglobin 30 25-34 pg Mean Corpuscular Hemoglobin Concent 34 32-36 g/dL Red Cell Distribution Width 11.9 10.0-14.5 % Platelet Count 233 130-400 10^3/uL Mean Platelet Volume 9.3 9.0-12.2 fL Immature Granulocyte % (Auto) 0 % Neutrophils (%) (Auto) 50 42-75 % Lymphocytes (%) (Auto) 41 12-44 % Monocytes (%) (Auto) 7 0-12 % Eosinophils (%) (Auto) 1 0-10 % Basophils (%) (Auto) 0 0-10 % Neutrophils # (Auto) 2.7 1.8-7.8 X 10^3 Lymphocytes # (Auto) 2.2 1.0-4.0 X 10^3 Monocytes # (Auto) 0.4 0.0-1.0 X 10^3 Eosinophils # (Auto) 0.1 0.0-0.3 10^3/uL Basophils # (Auto) 0.0 0.0-0.1 10^3/uL Immature Granulocyte # (Auto) 0.0 0.0-0.1 10^3/uL Sodium Level 141 135-145 MMOL/L Potassium Level 4.2 3.6-5.0 MMOL/L Chloride Level 110 H 98-107 MMOL/L Carbon Dioxide Level 19 L 21-32 MMOL/L Anion Gap 12 5-14 MMOL/L Blood Urea Nitrogen 11 7-18 MG/DL Creatinine 0.80 0.60-1.30 MG/DL Estimat Glomerular Filtration Rate 100 BUN/Creatinine Ratio 14 Glucose Level 103 70-105 MG/DL Calcium Level 9.2 8.5-10.1 MG/DL Corrected Calcium 8.8 8.5-10.1 MG/DL Total Bilirubin 0.4 0.1-1.0 MG/DL Aspartate Amino Transf (AST/SGOT) 109 H 5-34 U/L Alanine Aminotransferase (ALT/SGPT) 186 H 0-55 U/L Alkaline Phosphatase 111 40-136 U/L Total Protein 7.4 6.4-8.2 GM/DL Albumin 4.5 3.2-4.5 GM/DL Lipase 43 8-78 U/L Urine Color YELLOW Urine Clarity CLEAR Urine pH 5.5 5-9 Urine Specific [place] >=1.030 1.016-1.022 Urine Protein 1+ H NEGATIVE Urine Glucose (UA) NEGATIVE NEGATIVE Urine Ketones NEGATIVE NEGATIVE Urine Nitrite NEGATIVE NEGATIVE Urine Bilirubin NEGATIVE NEGATIVE Urine Urobilinogen 0.2 < = 1.0 MG/DL Urine Leukocyte Esterase TRACE H NEGATIVE Urine RBC (Auto) NEGATIVE NEGATIVE Urine RBC NONE /HPF Urine WBC 10-25 H /HPF Urine Squamous Epithelial Cells 5-10 /HPF Urine Crystals NONE /LPF Urine Bacteria FEW H /HPF Urine Casts PRESENT /LPF Urine Hyaline Casts 2-5 H /LPF Urine Mucus SMALL H /LPF Urine Culture Indicated YES Urine Test NEGATIVE NEGATIVE My Orders Orders - JANE CHACON APRN Comprehensive Metabolic Panel (09/03/22 16:02) Lipase (09/03/22 16:02) Ed Iv/Invasive Line Start (09/03/22 16:02) Cbc With Automated Diff (09/03/22 16:02) Ondansetron Injection (Zofran Injectio (09/03/22 16:15) Lidocaine 2% Viscous 15 Ml (Xylocaine Vi (09/03/22 16:15) Antacid Suspension (Mylanta Suspension (09/03/22 16:15) Famotidine Injection (Pepcid Injection) (09/03/22 16:02) Ketorolac Injection (Toradol Injection) (09/03/22 16:45) Ct Abdomen/Pelvis Wo (09/03/22 17:21) Ciprofloxacin Tablet (Cipro Tablet) (09/03/22 18:00) Hcg,Qualitative Urine (09/03/22 18:12) Medications Given in ED Current Medications Medications Dose Ordered Sig/Mani Route Start Time Stop Time Status Last Admin Dose Admin Al Hydrox/Mg Hydrox/Simethicone 30 ml ONCE ONCE PO 09/03/22 16:15 09/03/22 16:16 DC 09/03/22 16:11 30 ML Ciprofloxacin 500 mg ONCE ONCE PO 09/03/22 18:00 09/03/22 18:05 DC 09/03/22 18:26 500 MG Ketorolac Tromethamine 30 mg ONCE ONCE IVP 09/03/22 16:45 09/03/22 16:46 DC 09/03/22 17:01 30 MG Lidocaine HCl 15 ml ONCE ONCE PO 09/03/22 16:15 09/03/22 16:16 DC 09/03/22 16:10 15 ML Ondansetron HCl 4 mg ONCE ONCE IVP 09/03/22 16:15 09/03/22 16:16 DC 09/03/22 16:11 4 MG Vital Signs/I&O 09/03/22 09/03/22 15:35 19:51 Temp 36.3 Pulse 103 69 Resp 18 16 B/P (MAP) 121/88 (99) 97/66 Pulse Ox 98 100 O2 Delivery Room Air Room Air Progress Progress Note #1: Time: 16:15 Progress Note Patient seen and evaluated. Patient appears to be in moderate distress. Work- up initiated for abdominal pain. CBC, CMP, UA, UCG, lipase ordered. Flu and COVID swabs ordered. IV Zofran, IV Pepcid, GI cocktail ordered. Progress Note #2: Time: 17:22 Progress Note LFTs elevated. CT scan ordered. Progress Note #3: Time: 19:28 Progress Note Discussed results with patient. Long discussion regarding constipation and options for improvement. Discussed reducing or stopping Suboxone dose if patient can tolerate, patient states she has already been reducing the dose and is on a very low-dose currently. Patient states she will perform enemas and take Colace for constipation continue Linzess. Patient states that since she had stopped Linzess for few days, it takes a little while to rebuild in the system. Patient states once it rebuilds, she normally has regular bowel movements. Will prescribe Toradol for pain per patient request since it seemed to help. Will prescribe short course of Pepcid. Discussed taking antibiotic for UTI. Provided return precautions. Patient structured to follow-up with primary care provider regarding elevated LFTs. Diagnostic Imaging Diagonstic Imaging: CT Plain Films/CT/US/NM/MRI: abdomen Comments Date of Exam:09/03/22 CT ABDOMEN/PELVIS WO PROCEDURE: CT abdomen and pelvis without contrast. TECHNIQUE: Multiple contiguous axial images were obtained through the abdomen and pelvis without the use of intravenous contrast. Auto Exposure Controls were utilized during the CT exam to meet ALARA standards for radiation dose reduction. INDICATION: Upper abdominal pain. No prior studies are available for comparison. Lung bases are clear. Liver is unremarkable. Gallbladder surgically absent. There is no biliary ductal dilatation. Pancreas and spleen are unremarkable. No adrenal mass is detected. No renal calculi or hydronephrosis is identified. Aorta is nonaneurysmal. Bowel loops are nonobstructed. There is a moderate stool load throughout the colon consistent with constipation. Small bowel is normal caliber. No free fluid or fluid collection is identified. No inflammatory changes are seen. Appendix is unremarkable. The uterus and bladder are unremarkable. Bony structures are nonacute. IMPRESSION: Moderate stool consistent with constipation. No other significant abnormality is detected. Dictated by: Dictated on workstation # [id number] Dict: 09/03/221851 Trans: 09/03/221900 [facility] [id number] Interpreted by: GREG CONROY MD Electronically signed by: GREG CONROY MD 09/03/221900 Departure Impression Primary Impression: Constipation Additional Impression: Urinary tract infection Disposition: HOME, SELF-CARE Condition: Stable Departure-Patient Inst. Decision time for Depature: 19:34 Referrals: NO,LOCAL PHYSICIAN (PCP/Family) Primary Care Physician Patient Instructions: Constipation in Adults, Urinary Tract Infection, Adult (DC) Add. Discharge Instructions: Take full course of antibiotic as prescribed. Do not stop taking it if you begin to feel better. Take Toradol as needed for pain. Take Pepcid twice daily for 2 weeks. Treat constipation as discussed. Use enemas as needed. Take Colace as needed, and continue Linzess. Follow-up with primary care provider. Will need liver labs rechecked in a few weeks. Return for any new or concerning symptoms, severe abdominal pain, uncontrolled vomiting. All discharge instructions reviewed with patient and/or family. Voiced understanding. Scripts Ciprofloxacin (Ciprofloxacin) 500 Mg/5 Ml [facility].rec 500 MG PO BID for 7 Days, #14 TAB 0 Refills Prov: JANE CHACON JOB TRACER 09/03/22 Ketorolac Tromethamine (Ketorolac Tromethamine) 10 Mg Tablet 10 MG PO TID for 7 Days, #21 TAB 0 Refills Prov: JANE CHACON JOB TRACER 09/03/22 Famotidine (Pepcid) 20 Mg Tablet 20 MG PO BID for 14 Days, #28 TAB 0 Refills Prov: JANE CHACON JOB TRACER 09/03/22 JANE CHACON APRN Sep 03, 2022 16:13
[2022-09-03 16:15] LABS: BASOPHILS % (AUTO) 0 % (0-10); EOSINOPHILS # (AUTO) 0.1 10^3/uL (0.0-0.3); EOSINOPHILS % (AUTO) 1 % (0-10); HEMATOCRIT 43 % (35-52); HEMOGLOBIN 14.5 g/dL (11.5-16.0); LYMPHOCYTES # (AUTO) 2.2 X 10^3 (1.0-4.0); LYMPHOCYTES % (AUTO) 41 % (12-44); MEAN CORPUSCULAR HEMOGLOBIN 30 pg (25-34); MEAN CORPUSCULAR HGB CONC 34 g/dL (32-36); MEAN CORPUSCULAR VOLUME 87 fL (80-99); MEAN PLATELET VOLUME 9.3 fL (9.0-12.2); MONOCYTES # (AUTO) 0.4 X 10^3 (0.0-1.0); MONOCYTES % (AUTO) 7 % (0-12); NEUTROPHILS # (AUTO) 2.7 X 10^3 (1.8-7.8); NEUTROPHILS % (AUTO) 50 % (42-75); PLATELET COUNT 233 10^3/uL (130-400); WHITE BLOOD COUNT 5.4 10^3/uL (4.3-11.0)
[2022-09-03] MEDS ORDERED: LIDOCAINE 2% VISCOUS 15 ML UDC PO ONE (16:15)
[2022-09-03] MEDS ORDERED: ANTACID SUSP 30 ML UDC (MYLANTA) PO ONE (16:15)
[2022-09-03] MEDS ORDERED: ONDANSETRON 4 MG/2 ML (SDV) Z0FRAN IVP ONE (16:15)
[2022-09-03 16:24] LABS: ALBUMIN 4.5 GM/DL (3.2-4.5)
[2022-09-03 16:25] LABS: POTASSIUM 4.2 MMOL/L (3.6-5.0)
[2022-09-03 16:26] LABS: CALCIUM 9.2 MG/DL (8.5-10.1)
[2022-09-03 16:27] LABS: TOTAL PROTEIN 7.4 GM/DL (6.4-8.2)
[2022-09-03 16:29] LABS: BILIRUBIN,TOTAL 0.4 MG/DL (0.1-1.0)
[2022-09-03 16:31] LABS: CREATININE SERUM 0.8 MG/DL (0.60-1.30)
[2022-09-03] MEDS ORDERED: KETOROLAC 30 MG/ML VIAL IVP ONE (16:45)
[2022-09-03 16:46] LABS: BILIRUBIN,URINE NEGATIVE (NEGATIVE); CLARITY,URINE CLEAR; COLOR,URINE YELLOW; GLUCOSE, URINE (UA) NEGATIVE (NEGATIVE); KETONES,URINE NEGATIVE (NEGATIVE); LEUKOCYTE ESTERASE ,URINE TRACE (NEGATIVE); NITRITE,URINE NEGATIVE (NEGATIVE); PH,URINE 5.5 (5-9); PROTEIN,URINE 1+ (NEGATIVE)
[2022-09-03 16:58] LABS: BACTERIA,URINE FEW /HPF
[2022-09-03] MEDS ORDERED: NS 100 ML (IVPB) BAG IV ONE (17:15)
[2022-09-03] MEDS ORDERED: IOHEXOL 350 MG/ML 100 ML (OMNIPAQUE 350) VIAL IV ONE (17:15)
[2022-09-03] MEDS ORDERED: CIPROFLOXACIN 500 MG (CIPRO) TABLET PO ONE (18:00)
--- NOTE | 2022-09-03 19:02 | Diagnostic Imaging Report ---
PROCEDURE: CT abdomen and pelvis without contrast. TECHNIQUE: Multiple contiguous axial images were obtained through the abdomen and pelvis without the use of intravenous contrast. Auto Exposure Controls were utilized during the CT exam to meet ALARA standards for radiation dose reduction. INDICATION: Upper abdominal pain. No prior studies are available for comparison. Lung bases are clear. Liver is unremarkable. Gallbladder surgically absent. There is no biliary ductal dilatation. Pancreas and spleen are unremarkable. No adrenal mass is detected. No renal calculi or hydronephrosis is identified. Aorta is nonaneurysmal. Bowel loops are nonobstructed. There is a moderate stool load throughout the colon consistent with constipation. Small bowel is normal caliber. No free fluid or fluid collection is identified. No inflammatory changes are seen. Appendix is unremarkable. The uterus and bladder are unremarkable. Bony structures are nonacute. IMPRESSION: Moderate stool consistent with constipation. No other significant abnormality is detected. Dictated by: Dictated on workstation # [id number]
[2022-09-03] MEDS ORDERED: FAMO-119 PO (19:39)
[2022-09-03] MEDS ORDERED: CIPR500S3 PO (19:39)
[2022-09-03] MEDS ORDERED: KETO10TA PO (19:39)
[2022-09-03 19:51] VITALS: BP 97/66
== END 2022-09-03 19:50 | disposition home or self-care (01) ==
LOC: EDUNIT# 15:35 → ER 15:36
DX: K59.00 Constipation, unspecified (principal); N39.0 Urinary tract infection, site not specified; F17.210 Nicotine dependence, cigarettes, uncomplicated; Z20.822 Contact with and (suspected) exposure to COVID-19; Z32.02 Encounter for pregnancy test, result negative
CPT/HCPCS: 36415; 74176; 80053; 81000; 83690; 84703; 85025; 87088; 87636

== ENCOUNTER 2022-10-22 16:28 | Emergency (ER) | payer MEDICAID ==
[~2022-10-22] VITALS: Ht 152 cm; Wt 68.0 kg
[~2022-10-22 16:28] MED LIST changes: +CIPR500S3 PO; +FAMO-119 PO
[2022-10-22] MEDS ORDERED: AMOX875T2 PO (17:39)
--- NOTE | 2022-10-22 17:39 | ED Cough/URI ---
General Chief Complaint: Cough/Cold/Flu Symptoms Stated Complaint: FLU LIKE SYMPTOMS Nursing Triage Note: pt to ft3 by cc ems with c/o flu like symptoms, cough, sob when standing and states her has had pneumonia last week Allergies and Home Medications Allergies Coded Allergies: No Known Drug Allergies (Unverified , 02/05/22) Patient Home Medication List Ciprofloxacin (Ciprofloxacin) 500 Mg/5 Ml [facility], 500 MG PO BID Prescribed by: Jane Metz on 09/03/221938 Ciprofloxacin HCl (Ciprofloxacin HCl) 500 Mg Tablet, 500 MG PO BID Prescribed by: PATRICIA EUCEDA on 02/05/221732 Famotidine (Pepcid) 20 Mg Tablet, 20 MG PO BID Prescribed by: Jane Metz on 09/03/221938 Ketorolac Tromethamine (Ketorolac Tromethamine) 10 Mg Tablet, 10 MG PO Q6H Prescribed by: PATRICIA EUCEDA on 02/05/221757 Ketorolac Tromethamine (Ketorolac Tromethamine) 10 Mg Tablet, 10 MG PO TID Prescribed by: Jane Metz on 09/03/221938 Magnesium Citrate (Magnesium Citrate) 296 Ml Solution, 296 ML PO DAILY PRN PRN for CONSTIPATION-2ND LINE Prescribed by: SOFI WEBBER on 04/01/22 145 Metoprolol Succinate (Toprol Xl) 25 Mg Tab.er.24h, 25 MG PO DAILY Prescribed by: KRISTINE HOROWITZ on 06/03/221751 Na Phos,M-B/Na Phos,Di-Ba (Fleet Enema) 19 Gram-7 Gram/118 Ml Enema, 133 ML RC DAILY PRN for CONSTIPATION-3RD LINE Prescribed by: SOFI WEBBER on 04/01/22 145 Ondansetron (Ondansetron Odt) 4 Mg Tab.rapdis, 4 MG PO Q4H Prescribed by: MASSIEL VOGEL on 03/12/221999 Ondansetron (Ondansetron Odt) 4 Mg Tab.rapdis, 4 MG PO Q4H Prescribed by: SOFI WEBBER on 04/01/22 145 Promethazine HCl (Promethazine Tablet) 25 Mg Tablet, 25 MG PO Q6H PRN for NAUSEA/VOMITING Prescribed by: PATRICIA EUCEDA on 02/05/22 1733 Promethazine HCl (Promethazine Tablet) 25 Mg Tablet, 25 MG PO Q6H PRN for NAUSEA/VOMITING Prescribed by: SOFI WEBBER on 03/26/22 1528 Past Ueacyku-Grqyrp-Pvpyci Hx Patient Social History Tobacco Use?: No Use of E-Cig and/or Vaping dev: No Substance use?: No Alcohol Use?: No Pt feels they are or have been: No Immunizations Up To Date Influenza Vaccine Up-to-Date: No; Not Current First/Initial COVID19 Vaccinat: denies Second COVID19 Vaccination Akin: denies Third COVID19 Vaccination Date: denies Past Medical History Surgery/Hospitalization HX: asthma, hx of cervical CA, neuropathy Surgery;tonsils and gallbladder removal. Surgeries: Yes (LEEP, TEETH REMOVED) Gallbladder, Tonsillectomy Respiratory: Yes Asthma Cardiac: Yes High Cholesterol, Palpitations Neurological: Yes (FIBROMYALGIA) Neuropathy Last Menstrual Period: Oct 09, 2022 Reproductive Disorders: Yes (CERVICAL CANCER) Genitourinary: Yes Bladder Infection Gastrointestinal: Yes Gastroesophageal Reflux, Chronic Constipation Musculoskeletal: Yes (CHRONIC GENERALIZED PAIN ) Fibromyalgia Endocrine: No HEENT: Yes (ALL TEETH REMOVED) Cancer: Yes Cervical Did You Recieve Any Treatments: Yes What Type of Treatment Did You: Surgical Intervention Psychosocial: Yes (POLYSUBSTANCE ABUSE-ALCOHOL + OPIATES) Integumentary: No Blood Disorders: No Family Medical History SOCIAL HISTORY: -SMOKES 2 PPD -ETOH--HISTORY OF VERY HEAVY/DAILY USE. CLAIMS NO USE X 7 YEARS, PER PT 03/12/22 -DRUGS--CHRONIC OPIATE USE/ABUSE-NOW ON SUBOXONE PAST SURGICAL HISTORY: -LEEP -CHOLECYSTECTOMY -ALL TEETH REMOVED Physical Exam Vital Signs - First Documented 10/22/22 16:39 Temp 36.8 Pulse 89 Resp 16 B/P (MAP) 95/73 (80) Capillary Refill : Height: '" Weight: lbs. oz. kg; 29.00 BMI Method: Progress/Results/Core Measures Suspected Sepsis SIRS Temperature: Pulse: 89 Respiratory Rate: 16 Blood Pressure 95 /73 Mean: 80 Results/Orders Lab Results Laboratory Tests Test 10/22/22 16:37 Range/Units Influenza Type A (RT-PCR) Not Detected Not Detecte Influenza Type B (RT-PCR) Not Detected Not Detecte SARS-CoV-2 RNA (RT-PCR) Not Detected Not Detecte Vital Signs/I&O 10/22/22 16:39 Temp 36.8 Pulse 89 Resp 16 B/P (MAP) 95/73 (80) Capillary Refill : Blood Pressure Mean: 80 Departure Impression Primary Impression: Upper respiratory infection Disposition: 01 HOME, SELF-CARE Condition: Stable Departure-Patient Inst. Decision time for Depature: 17:37 Referrals: NO,LOCAL PHYSICIAN (PCP/Family) Primary Care Physician Patient Instructions: Upper Respiratory Infection ED Add. Discharge Instructions: HOME, REST TYLENOL AND MOTRIN NEEDED FOR PAIN OR FEVER OVER THE COUNTER MEDICATIONS FOR COUGH AND CONGESTION FOLLOW UP WITH YOUR DR IN 3-4 DAYS IF NO BETTER All discharge instructions reviewed with patient and/or family. Voiced understanding. Scripts Amoxicillin (Amoxicillin) 875 Mg Tablet 875 MG PO BID, #20 TAB Prov: MASSIEL VOGEL DO 10/22/22 MASSIEL VOGEL DO Oct 22, 2022 17:39
[2022-10-22 17:54] VITALS: BP 110/77
== END 2022-10-22 17:55 | disposition home or self-care (01) ==
LOC: EDUNIT# 16:28 → ER 16:29
DX: J06.9 Acute upper respiratory infection, unspecified (principal); F17.210 Nicotine dependence, cigarettes, uncomplicated; Z20.822 Contact with and (suspected) exposure to COVID-19; Z28.310 Unvaccinated for COVID-19
CPT/HCPCS: 87636; 99283

== ENCOUNTER 2022-11-09 06:52 | Day surgery (SDC) | payer MEDICAID ==
[2022-11-09] VITALS (7 sets, daily range): BP systolic 101–109; BP diastolic 42–66
[~2022-11-09 06:52] MED LIST changes: +AMOX875T2 PO
--- NOTE | 2022-11-09 07:14 | ED Abdominal Pain ---
General Chief Complaint: Abdominal/GI Problems Stated Complaint: ABD PAIN Nursing Triage Note: Pt presents via ems with c/o abdominal pain that woke her up approx 15 min prior to her calling 911. Pt reports hx of constipation and GERD. Last B/M was yesterday and normal. Pt did not take anything at home for pain. Source of Information: Patient, EMS Exam Limitations: No Limitations History of Present Illness Date Seen by Provider: Nov 09, 2022 Time Seen by Provider: 07:04 Initial Comments 32-year-old female presents via EMS for abdominal pain. She states symptoms woke her up approximately 15 minutes prior to her calling EMS. She describes a sharp stabbing sensation in her right lower abdomen at, with palpation, feels like somebody is "blowing up a firework in my belly." She does endorse nausea for the last couple of days but no vomiting. Last menstrual cycle was 1 month ago and she is due to start soon. She thought maybe her symptoms were related to the onset of menses but feels there may be something more going on at this time. She has had her gallbladder removed denies any other intra-abdominal surgeries. She takes Linzess for constipation related to Suboxone use but her bowel movements have been normal for her with the last being yesterday. No urinary symptoms. No vaginal symptoms. She does not believe she may be All other systems reviewed and negative except documented per HPI. Voice recognition software was used to help create this chart Allergies and Home Medications Allergies Coded Allergies: No Known Drug Allergies (Unverified , 02/05/22) Patient Home Medication List Home Medication List Reviewed: Yes Amoxicillin (Amoxicillin) 875 Mg Tablet, 875 MG PO BID Prescribed by: MASSIEL VOGEL on 10/22/221738 Ciprofloxacin (Ciprofloxacin) 500 Mg/5 Ml [facility]..rec, 500 MG PO BID Prescribed by: Jane Metz on 09/03/221938 Ciprofloxacin HCl (Ciprofloxacin HCl) 500 Mg Tablet, 500 MG PO BID Prescribed by: PATRICIA EUCEDA on 02/05/221732 Famotidine (Pepcid) 20 Mg Tablet, 20 MG PO BID Prescribed by: Jane Metz on 09/03/221938 Ketorolac Tromethamine (Ketorolac Tromethamine) 10 Mg Tablet, 10 MG PO Q6H Prescribed by: PATRICIA EUCEDA on 02/05/22 1758 Ketorolac Tromethamine (Ketorolac Tromethamine) 10 Mg Tablet, 10 MG PO TID Prescribed by: Jane Metz on 09/03/22 193 Magnesium Citrate (Magnesium Citrate) 296 Ml Solution, 296 ML PO DAILY PRN PRN for CONSTIPATION-2ND LINE Prescribed by: SOFI WEBBER on 04/01/22 145 Metoprolol Succinate (Toprol Xl) 25 Mg Tab.er.24h, 25 MG PO DAILY Prescribed by: KRISTINE HOROWITZ on 06/03/22 1752 Na Phos,M-B/Na Phos,Di-Ba (Fleet Enema) 19 Gram-7 Gram/118 Ml Enema, 133 ML RC DAILY PRN for CONSTIPATION-3RD LINE Prescribed by: SOFI WEBBER on 04/01/22 145 Ondansetron (Ondansetron Odt) 4 Mg Tab.rapdis, 4 MG PO Q4H Prescribed by: MASSIEL VOGEL on 03/12/221999 Ondansetron (Ondansetron Odt) 4 Mg Tab.rapdis, 4 MG PO Q4H Prescribed by: SOFI WEBBER on 04/01/22 145 Promethazine HCl (Promethazine Tablet) 25 Mg Tablet, 25 MG PO Q6H PRN for NAUSEA/VOMITING Prescribed by: PATRICIA EUCEDA on 02/05/22 1733 Promethazine HCl (Promethazine Tablet) 25 Mg Tablet, 25 MG PO Q6H PRN for NAUSEA/VOMITING Prescribed by: SOFI WEBBER on 03/26/22 1528 Review of Systems Review of Systems Constitutional: no symptoms reported Past Jxtezwe-Zhhwxe-Dmgbps Hx Immunizations Up To Date First/Initial COVID19 Vaccinat: denies Second COVID19 Vaccination Akin: denies Third COVID19 Vaccination Date: denies Past Medical History Surgery/Hospitalization HX: asthma, hx of cervical CA, neuropathy Surgery;tonsils and gallbladder removal. Surgeries: Yes (LEEP, TEETH REMOVED) Gallbladder, Tonsillectomy Respiratory: Yes Asthma Cardiac: Yes High Cholesterol, Palpitations Neurological: Yes (FIBROMYALGIA) Neuropathy Reproductive Disorders: Yes (CERVICAL CANCER--S/P LEEP) Genitourinary: Yes Bladder Infection Gastrointestinal: Yes Gastroesophageal Reflux, Chronic Constipation Musculoskeletal: Yes (CHRONIC GENERALIZED PAIN ) Fibromyalgia Endocrine: No HEENT: Yes (ALL TEETH REMOVED) Cancer: Yes Cervical Did You Recieve Any Treatments: Yes What Type of Treatment Did You: Surgical Intervention Psychosocial: Yes (POLYSUBSTANCE ABUSE-ALCOHOL + OPIATES) Integumentary: No Blood Disorders: No Family Medical History Reviewed Nursing Family Hx No Pertinent Family Hx SOCIAL HISTORY: -SMOKES 2 PPD -ETOH--HISTORY OF VERY HEAVY/DAILY USE. CLAIMS NO USE X 7 YEARS, PER PT 03/12/22 -DRUGS--CHRONIC OPIATE USE/ABUSE-NOW ON SUBOXONE PAST SURGICAL HISTORY: -LEEP -CHOLECYSTECTOMY -ALL TEETH REMOVED Physical Exam Vital Signs Vital Signs - First Documented 11/09/22 07:01 Temp 36.9 Pulse 99 Resp 18 B/P (MAP) 115/85 (95) Capillary Refill : Less Than 3 Seconds Height/Weight/BMI Height: '" Weight: lbs. oz. kg; 29.00 BMI Method: General Appearance: WD/WN, no apparent distress HEENT: normal ENT inspection, pharynx normal Neck: non-tender, full range of motion, supple, normal inspection Respiratory: chest non-tender, lungs clear, normal breath sounds, no respiratory distress, no accessory muscle use Cardiovascular: regular rate, rhythm, no murmur Gastrointestinal: normal bowel sounds, soft, tenderness (Diffuse abdominal tenderness which does seem to be worse in the right lower quadrant. She has continued involuntary guarding. No rebound tenderness. Pressure to the left side of her abdomen does increase her tenderness in the right lower abdomen. No skin changes. Positive Rovsing, obturator) Extremities: normal range of motion, non-tender, normal inspection, no pedal edema, no calf tenderness, normal capillary refill Neurologic/Psychiatric: alert, normal mood/affect, oriented x 3 Skin: normal color, warm/dry Progress/Results/Core Measures Results/Orders Lab Results Laboratory Tests Test 11/09/22 07:31 11/09/22 07:40 Range/Units White Blood Count 9.5 4.3-11.0 10^3/uL Red Blood Count 4.40 3.80-5.11 10^6/uL Hemoglobin 12.9 11.5-16.0 g/dL Hematocrit 38 35-52 % Mean Corpuscular Volume 86 80-99 fL Mean Corpuscular Hemoglobin 29 25-34 pg Mean Corpuscular Hemoglobin Concent 34 32-36 g/dL Red Cell Distribution Width 12.0 10.0-14.5 % Platelet Count 212 130-400 10^3/uL Mean Platelet Volume 9.8 9.0-12.2 fL Immature Granulocyte % (Auto) 0 % Neutrophils (%) (Auto) 73 42-75 % Lymphocytes (%) (Auto) 21 12-44 % Monocytes (%) (Auto) 5 0-12 % Eosinophils (%) (Auto) 1 0-10 % Basophils (%) (Auto) 0 0-10 % Neutrophils # (Auto) 6.9 1.8-7.8 10^3/uL Lymphocytes # (Auto) 1.9 1.0-4.0 10^3/uL Monocytes # (Auto) 0.5 0.0-1.0 10^3/uL Eosinophils # (Auto) 0.1 0.0-0.3 10^3/uL Basophils # (Auto) 0.0 0.0-0.1 10^3/uL Immature Granulocyte # (Auto) 0.0 0.0-0.1 10^3/uL Sodium Level 142 135-145 MMOL/L Potassium Level 3.8 3.6-5.0 MMOL/L Chloride Level 108 H 98-107 MMOL/L Carbon Dioxide Level 21 21-32 MMOL/L Anion Gap 13 5-14 MMOL/L Blood Urea Nitrogen 12 7-18 MG/DL Creatinine 0.76 0.60-1.30 MG/DL Estimat Glomerular Filtration Rate 106 BUN/Creatinine Ratio 16 Glucose Level 148 H 70-105 MG/DL Calcium Level 8.9 8.5-10.1 MG/DL Corrected Calcium 8.8 8.5-10.1 MG/DL Total Bilirubin 0.4 0.1-1.0 MG/DL Aspartate Amino Transf (AST/SGOT) 29 5-34 U/L Alanine Aminotransferase (ALT/SGPT) 44 0-55 U/L Alkaline Phosphatase 58 40-136 U/L Total Protein 6.2 L 6.4-8.2 GM/DL Albumin 4.1 3.2-4.5 GM/DL Lipase 41 8-78 U/L Serum Test, Qualitative NEGATIVE NEGATIVE Urine Color YELLOW Urine Clarity CLEAR Urine pH 6.5 5-9 Urine Specific [place] 1.020 1.016-1.022 Urine Protein NEGATIVE NEGATIVE Urine Glucose (UA) NEGATIVE NEGATIVE Urine Ketones NEGATIVE NEGATIVE Urine Nitrite NEGATIVE NEGATIVE Urine Bilirubin NEGATIVE NEGATIVE Urine Urobilinogen 4.0 < = 1.0 MG/DL Urine Leukocyte Esterase NEGATIVE NEGATIVE Urine RBC (Auto) NEGATIVE NEGATIVE Urine RBC NONE /HPF Urine WBC 0-2 /HPF Urine Squamous Epithelial Cells 5-10 /HPF Urine Crystals NONE /LPF Urine Bacteria TRACE /HPF Urine Casts NONE /LPF Urine Mucus NEGATIVE /LPF Urine Culture Indicated NO My Orders Orders - MARTÍN MAN DO Comprehensive Metabolic Panel (11/09/22 07:10) Lipase (11/09/22 07:10) Ua Culture If Indicated (11/09/22 07:10) Hcg,Qualitative Serum (11/09/22 07:10) Cbc With Automated Diff (11/09/22 07:10) Ct Abdomen/Pelvis W (11/09/22 07:10) Ondansetron Injection (Zofran Injectio (11/09/22 07:15) Ketorolac Injection (Toradol Injection) (11/09/22 08:00) Iohexol Injection (Omnipaque 350 Mg/Ml 1 (11/09/22 08:45) Received Contrast (Hold Metformin- Contr (11/09/22 08:45) Ns (Ivpb) (Sodium Chloride 0.9% Ivpb Bag (11/09/22 08:45) Piperacillin Sodium/Tazobactam (Zosyn Vi (11/09/22 09:30) Fentanyl Inj (Sublimaze Injection) (11/09/22 09:30) Medications Given in ED Current Medications Medications Dose Ordered Sig/Mani Route Start Time Stop Time Status Last Admin Dose Admin Iohexol 100 ml ONCE ONCE IV 11/09/22 08:45 11/09/22 08:46 DC 11/09/22 08:34 80 ML Ketorolac Tromethamine 15 mg ONCE ONCE IVP 11/09/22 08:00 11/09/22 08:01 DC 11/09/22 07:59 15 MG Ondansetron HCl 8 mg ONCE ONCE IVP 11/09/22 07:15 11/09/22 07:16 DC 11/09/22 07:37 8 MG Sodium Chloride 100 ml ONCE ONCE IV 11/09/22 08:45 11/09/22 08:46 DC 11/09/22 08:34 80 ML Vital Signs/I&O 11/09/22 07:01 Temp 36.9 Pulse 99 Resp 18 B/P (MAP) 115/85 (95) Blood Pressure Mean: 95 Departure Communication (Admissions) Patient's exam is consistent with acute appendicitis. test is negative and CT scan obtained thereafter. This confirms evidence for early appendicitis on my independent read and confirmed by radiologist read. White blood cell count is normal she is afebrile and nontoxic. No evidence of sepsis. She does have localized peritonitis on exam. I have ordered her some Zosyn. I spoke with Dr. Millan, surgeon on-call. He is calling in the surgery team and will take the patient to the operating room. I spoke with the house superintendent to confirm bed status and placement. Patient was given Toradol earlier, ordered fentanyl now. Impression Primary Impression: Appendicitis Qualified Codes: K35.30 - Acute appendicitis with localized peritonitis, without perforation or gangrene Disposition: ADMITTED INPATIENT Condition: Stable Admissions Decision to Admit Reason: Admit from ER (General) Departure-Patient Inst. Referrals: NO,LOCAL PHYSICIAN (PCP/Family) Primary Care Physician MARTÍN MAN DO Nov 09, 2022 07:14
[2022-11-09] MEDS ORDERED: ONDANSETRON 4 MG/2 ML (SDV) Z0FRAN IVP ONE (07:15)
[2022-11-09 07:37] LABS: BASOPHILS % (AUTO) 0 % (0-10); EOSINOPHILS # (AUTO) 0.1 10^3/uL (0.0-0.3); EOSINOPHILS % (AUTO) 1 % (0-10); HEMATOCRIT 38 % (35-52); HEMOGLOBIN 12.9 g/dL (11.5-16.0); LYMPHOCYTES # (AUTO) 1.9 10^3/uL (1.0-4.0); LYMPHOCYTES % (AUTO) 21 % (12-44); MEAN CORPUSCULAR HEMOGLOBIN 29 pg (25-34); MEAN CORPUSCULAR HGB CONC 34 g/dL (32-36); MEAN CORPUSCULAR VOLUME 86 fL (80-99); MEAN PLATELET VOLUME 9.8 fL (9.0-12.2); MONOCYTES # (AUTO) 0.5 10^3/uL (0.0-1.0); MONOCYTES % (AUTO) 5 % (0-12); NEUTROPHILS # (AUTO) 6.9 10^3/uL (1.8-7.8); NEUTROPHILS % (AUTO) 73 % (42-75); PLATELET COUNT 212 10^3/uL (130-400); WHITE BLOOD COUNT 9.5 10^3/uL (4.3-11.0)
[2022-11-09 07:47] LABS: BILIRUBIN,URINE NEGATIVE (NEGATIVE); CLARITY,URINE CLEAR; COLOR,URINE YELLOW; GLUCOSE, URINE (UA) NEGATIVE (NEGATIVE); KETONES,URINE NEGATIVE (NEGATIVE); LEUKOCYTE ESTERASE ,URINE NEGATIVE (NEGATIVE); NITRITE,URINE NEGATIVE (NEGATIVE); PH,URINE 6.5 (5-9); PROTEIN,URINE NEGATIVE (NEGATIVE)
[2022-11-09 07:56] LABS: BACTERIA,URINE TRACE /HPF; WBC,URINE 0-2 /HPF
[2022-11-09 07:56] LABS: ALBUMIN 4.1 GM/DL (3.2-4.5); POTASSIUM 3.8 MMOL/L (3.6-5.0)
[2022-11-09 07:57] LABS: CALCIUM 8.9 MG/DL (8.5-10.1)
[2022-11-09 07:58] LABS: TOTAL PROTEIN 6.2 GM/DL (6.4-8.2)
[2022-11-09 08:00] LABS: BILIRUBIN,TOTAL 0.4 MG/DL (0.1-1.0)
[2022-11-09] MEDS ORDERED: KETOROLAC 15 MG/ML VIAL IVP ONE (08:00)
[2022-11-09 08:02] LABS: CREATININE SERUM 0.76 MG/DL (0.60-1.30)
[2022-11-09] MEDS ORDERED: NS 100 ML (IVPB) BAG IV ONE (08:45)
[2022-11-09] MEDS ORDERED: IOHEXOL 350 MG/ML 100 ML (OMNIPAQUE 350) VIAL IV ONE (08:45)
[2022-11-09] MEDS ORDERED: HOLD METFORMIN - RECEIVED CONTRAST 20 ML VIAL IV SCH (08:45)
--- NOTE | 2022-11-09 09:08 | Diagnostic Imaging Report ---
PROCEDURE: CT abdomen and pelvis with contrast. TECHNIQUE: Multiple contiguous axial images were obtained through the abdomen and pelvis after administration of intravenous contrast. Auto Exposure Controls were utilized during the CT exam to meet ALARA standards for radiation dose reduction. All CT scans use one or more of the following dose optimizing techniques: automated exposure control, MA and/or KvP adjustment based on patient size and exam type or iterative reconstruction. INDICATION: 32-year-old female, abdominal pain waking patient up this morning. CORRELATION STUDY: CT abdomen pelvis 09/03/2022 FINDINGS: LOWER THORAX: Clear. LIVER: Borderline enlarged at 19 cm in length. Unchanged rounded 1 cm lesion subcapsular right hepatic lobe. Mild steatosis. GALLBLADDER: Cholecystectomy. No overt bile duct dilatation. At least 2 additional peritoneal clips are present. SPLEEN: Unremarkable. PANCREAS: Unremarkable. ADRENAL GLANDS: Unremarkable. KIDNEYS: Small rounded cortical low density lesion superior pole left kidney favors probable cyst. Kidneys normal enhancement. No obstruction. ABDOMINAL AORTA: Unremarkable, nonaneurysmal. A few small shotty mesenteric and aortocaval lymph nodes. GASTROINTESTINAL TRACT: Stomach contains small amount of retained fluid and gastric contents. No small bowel obstruction. There is mild stool through the colon. Short segment prominence of the appendix up to approximately 1 cm with mild periappendiceal inflammatory change at the base of the appendix. Question some small appendicolith. Distal appendix otherwise unremarkable. URINARY BLADDER: Relatively decompressed. REPRODUCTIVE: Uterus and adnexa unremarkable. Endometrium is mildly prominent likely phase of menstrual cycle. Trace pelvic fluid within physiologic range. OSSEOUS STRUCTURES: No acute abnormality. OTHER: None. IMPRESSION: 1. Findings consistent with early or low grade appendicitis. Dictated by: Dictated on workstation # [id number]
[2022-11-09] MEDS ORDERED: PIPERACILLIN SODIUM/TAZOBACTAM 4.5 GM in NS (IVPB) 100 ML IV ONE (09:30)
[2022-11-09] MEDS ORDERED: fentaNYL INJ 100 MCG/2 ML AMP IVP ONE ×2 (09:30→12:15)
--- NOTE | 2022-11-09 09:55 | Consultation - Surgery ---
BRIAN STOKES 11/09/22 0955: History of Present Illness History of Present Illness Patient Consulted On(anabel/time) 11/09/22 09:50 Date Seen by Provider: Nov 09, 2022 Time Seen by Provider: 09:50 History of Present Illness Sanjay Mandel is a 32F who presented to the ED with complaint of abdominal pain. She was afebrile on arrival, normal white count. CT of abdomen revealed enlargement of the appendix at 1cm with periappendiceal inflammatory changes consistent with appendicitis. Pain started this morning. Reports Nausea for the last week, no vomit. Pain is in RLQ 4/10 in severity after receiving pain medication. Was 10/10 this morning when it started. Patient reports chills this morning, denies fever. Pain radiates to umbilicus at times. No issues with eating or drinking prior to pain onset this morning. Allergies and Home Medications Allergies Coded Allergies: No Known Drug Allergies (Unverified , 02/05/22) Patient Home Medication List Home Medication List Reviewed: Yes Amoxicillin (Amoxicillin) 875 Mg Tablet, 875 MG PO BID Prescribed by: MASSIEL VOGEL on 10/22/221738 Ciprofloxacin (Ciprofloxacin) 500 Mg/5 Ml Abby.mc.rec, 500 MG PO BID Prescribed by: Jane Metz on 09/03/221938 Ciprofloxacin HCl (Ciprofloxacin HCl) 500 Mg Tablet, 500 MG PO BID Prescribed by: PATRICIA EUCEDA on 02/05/22 173 Famotidine (Pepcid) 20 Mg Tablet, 20 MG PO BID Prescribed by: Jane Metz on 09/03/221938 Ketorolac Tromethamine (Ketorolac Tromethamine) 10 Mg Tablet, 10 MG PO Q6H Prescribed by: PATRICIA EUCEDA on 02/05/22 175 Ketorolac Tromethamine (Ketorolac Tromethamine) 10 Mg Tablet, 10 MG PO TID Prescribed by: Jane Metz on 09/03/221938 Magnesium Citrate (Magnesium Citrate) 296 Ml Solution, 296 ML PO DAILY PRN PRN for CONSTIPATION-2ND LINE Prescribed by: SOFI WEBBER on 04/01/22 1452 Metoprolol Succinate (Toprol Xl) 25 Mg Tab.er.24h, 25 MG PO DAILY Prescribed by: KRISTINE HOROWITZ on 06/03/22 1752 Na Phos,M-B/Na Phos,Di-Ba (Fleet Enema) 19 Gram-7 Gram/118 Ml Enema, 133 ML RC DAILY PRN for CONSTIPATION-3RD LINE Prescribed by: SOFI WEBBER on 04/01/22 1452 Ondansetron (Ondansetron Odt) 4 Mg Tab.rapdis, 4 MG PO Q4H Prescribed by: MASSIEL VOGEL on 03/12/221999 Ondansetron (Ondansetron Odt) 4 Mg Tab.rapdis, 4 MG PO Q4H Prescribed by: SOFI WEBBER on 04/01/22 145 Promethazine HCl (Promethazine Tablet) 25 Mg Tablet, 25 MG PO Q6H PRN for NAUSEA/VOMITING Prescribed by: PATRICIA EUCEDA on 02/05/22 1733 Promethazine HCl (Promethazine Tablet) 25 Mg Tablet, 25 MG PO Q6H PRN for NAUSEA/VOMITING Prescribed by: SOFI WEBBER on 03/26/22 1528 Past Hjaoadt-Vwfbds-Mbftoy Hx Patient Social History Smoking Status: Former Smoker Alcohol Use?: No (former heavy alcohol use, no longer drinks) Substance type: Opiates/Opioids (former opioid use, now on suboxone) Have you traveled recently?: No Surgeries History of Surgeries: Yes (LEEP, TEETH REMOVED) Surgeries: Gallbladder, Tonsillectomy Respiratory History of Respiratory Disorde: Yes Respiratory Disorders: Asthma Cardiovascular History of Cardiac Disorders: Yes Cardiac Disorders: High Cholesterol, Palpitations Neurological History of Neurological Disord: Yes (FIBROMYALGIA) Neurological Disorders: Neuropathy Reproductive System Hx Reproductive Disorders: Yes (CERVICAL CANCER--S/P LEEP) Genitourinary History of Genitourinary Disor: Yes Genitourinary Disorders: Bladder Infection Gastrointestinal History of Gastrointestinal Di: Yes Gastrointestinal Disorders: Gastroesophageal Reflux, Chronic Constipation Musculoskeletal History of Musculoskeletal Dis: Yes (CHRONIC GENERALIZED PAIN ) Musculoskeletal Disorders: Fibromyalgia Endocrine History of Endocrine Disorders: No HEENT History of HEENT Disorders: Yes (ALL TEETH REMOVED) Cancer History of Cancer: Yes Cancer: Cervical Psychosocial History of Psychiatric Problem: Yes (POLYSUBSTANCE ABUSE-ALCOHOL + OPIATES) Integumentary History of Skin or Integumenta: No Blood Transfusions History of Blood Disorders: No Family Medical History Significant Family History: No Pertinent Family Hx, Cancer (breast cancer in mother), COPD (in mother), Diabetes (mother) Review of Systems-General Constitutional: chills; No diaphoresis, No fever EENTM: No hearing loss, No vision loss Respiratory: No cough, No short of breath Cardiovascular: No chest pain, No palpitations Gastrointestinal: abdominal pain (RLQ), nausea; No vomiting Genitourinary: No dysuria, No hematuria Musculoskeletal: No back pain, No neck pain Skin: No change in color, No change in hair/nails Psychiatric/Neurological: Denies Headache, Denies Weakness Physical Exam-General Problems Physical Exam Vital Signs Vital Signs - First Documented 11/09/22 07:01 Temp 36.9 Pulse 99 Resp 18 B/P (MAP) 115/85 (95) Capillary Refill : Less Than 3 Seconds General Appearance: WD/WN, no apparent distress HEENT: PERRL/EOMI; No scleral icterus (R), No scleral icterus (L) Neck: supple, normal inspection Respiratory: chest non-tender, lungs clear, no accessory muscle use Cardiovascular: normal peripheral pulses, regular rate, rhythm, no edema Gastrointestinal: soft; No distended; tenderness Rectal: deferred Extremities: no pedal edema, normal capillary refill Neurologic/Psychiatric: alert, normal mood/affect, oriented x 3 Skin: normal color, warm/dry Lymphatic: no adenopathy Data Review Labs Laboratory Tests 11/09/22 07:31: White Blood Count 9.5, Red Blood Count 4.40, Hemoglobin 12.9, Hematocrit 38, Mean Corpuscular Volume 86, Mean Corpuscular Hemoglobin 29, Mean Corpuscular Hemoglobin Concent 34, Red Cell Distribution Width 12.0, Platelet Count 212, Mean Platelet Volume 9.8, Immature Granulocyte % (Auto) 0, Neutrophils (%) (Auto) 73, Lymphocytes (%) (Auto) 21, Monocytes (%) (Auto) 5, Eosinophils (%) (Auto) 1, Basophils (%) (Auto) 0, Neutrophils # (Auto) 6.9, Lymphocytes # (Auto) 1.9, Monocytes # (Auto) 0.5, Eosinophils # (Auto) 0.1, Basophils # (Auto) 0.0, I mmature Granulocyte # (Auto) 0.0, Sodium Level 142, Potassium Level 3.8, Chloride Level 108H, Carbon Dioxide Level 21, Anion Gap 13, Blood Urea Nitrogen 12, Creatinine 0.76, Estimat Glomerular Filtration Rate 106, BUN/Creatinine Ratio 16, Glucose Level 148H, Calcium Level 8.9, Corrected Calcium 8.8, Total Bilirubin 0.4, Aspartate Amino Transf (AST/SGOT) 29, Alanine Aminotransferase (ALT/SGPT) 44, Alkaline Phosphatase 58, Total Protein 6.2L, Albumin 4.1, Lipase 41, Serum Test, Qualitative NEGATIVE 11/09/22 07:40: Urine Color YELLOW, Urine Clarity CLEAR, Urine pH 6.5, Urine Specific [place] 1.020, Urine Protein NEGATIVE, Urine Glucose (UA) NEGATIVE, Urine Ketones NEGAT SUKHWINDER, Urine Nitrite NEGATIVE, Urine Bilirubin NEGATIVE, Urine Urobilinogen 4.0, Urine Leukocyte Esterase NEGATIVE, Urine RBC (Auto) NEGATIVE, Urine RBC NONE, Urine WBC 0-2, Urine Squamous Epithelial Cells 5-10, Urine Crystals NONE, Urine Bacteria TRACE, Urine Casts NONE, Urine Mucus NEGATIVE, Urine Culture Indicated NO Radiology [facility], [place] NAME: SANJAY MANDEL [facility] REC#: [id number] PT STATUS: REG ER : 1990 PHYSICIAN: MARTÍN MAN DO ADMIT DATE: 11/09/22/ER Draft Date of Exam:11/09/22 CT ABDOMEN/PELVIS W PROCEDURE: CT abdomen and pelvis with contrast. TECHNIQUE: Multiple contiguous axial images were obtained through the abdomen and pelvis after administration of intravenous contrast. Auto Exposure Controls were utilized during the CT exam to meet ALARA standards for radiation dose reduction. All CT scans use one or more of the following dose optimizing techniques: automated exposure control, MA and/or KvP adjustment based on patient size and exam type or iterative reconstruction. INDICATION: 32-year-old female, abdominal pain waking patient up this morning. CORRELATION STUDY: CT abdomen pelvis 09/03/2022 FINDINGS: LOWER THORAX: Clear. LIVER: Borderline enlarged at 19 cm in length. Unchanged rounded 1 cm lesion subcapsular right hepatic lobe. Mild steatosis. GALLBLADDER: Cholecystectomy. No overt bile duct dilatation. At least 2 additional peritoneal clips are present. SPLEEN: Unremarkable. PANCREAS: Unremarkable. ADRENAL GLANDS: Unremarkable. KIDNEYS: Small rounded cortical low density lesion superior pole left kidney favors probable cyst. Kidneys normal enhancement. No obstruction. ABDOMINAL AORTA: Unremarkable, nonaneurysmal. A few small shotty mesenteric and aortocaval lymph nodes. GASTROINTESTINAL TRACT: Stomach contains small amount of retained fluid and gastric contents. No small bowel obstruction. There is mild stool through the colon. Short segment prominence of the appendix up to approximately 1 cm with mild periappendiceal inflammatory change at the base of the appendix. Question some small appendicolith. Distal appendix otherwise unremarkable. URINARY BLADDER: Relatively decompressed. REPRODUCTIVE: Uterus and adnexa unremarkable. Endometrium is mildly prominent likely phase of menstrual cycle. Trace pelvic fluid within physiologic range. OSSEOUS STRUCTURES: No acute abnormality. OTHER: None. IMPRESSION: 1. Findings consistent with a early or lower grade appendicitis. Dictated on workstation # [id number] Dict: 11/09/22 0857 Trans: 11/09/22 0907 [id number] Interpreted by: LISA PEREIRA DO Electronically signed by: Assessment/Plan Assessment/Plan Assessment/Plan Appendicitis RLQ pain CT evidence of early appendicitis Pt informed of risks and benefits of procedures, consents to surgery this morning Laparoscopic appendectomy and all other indicated procedures this AM KAMILA MCKEE DO 11/09/22 1034: History of Present Illness History of Present Illness History of Present Illness Seen and evaluated in ED. 32 year old female to ed with rlq abdominal pain. Began this morning. Sharp pain with radiation to umbilicus. Constant pain. Initially was 10/10 now 4/10. Movement makes worse. Nothing better. Nausea no emesis. No symptoms previous ly. Patient with ct scan showing changes of early appendicitis. Allergies and Home Medications Allergies Coded Allergies: No Known Drug Allergies (Unverified , 02/05/22) Patient Home Medication List Home Medication List Reviewed: Yes Amoxicillin (Amoxicillin) 875 Mg Tablet, 875 MG PO BID Prescribed by: MASSIEL VOGEL on 10/22/22 173 Ciprofloxacin (Ciprofloxacin) 500 Mg/5 Ml [facility].rec, 500 MG PO BID Prescribed by: Jane Metz on 09/03/22 193 Ciprofloxacin HCl (Ciprofloxacin HCl) 500 Mg Tablet, 500 MG PO BID Prescribed by: PATRICIA EUCEDA on 02/05/22 173 Famotidine (Pepcid) 20 Mg Tablet, 20 MG PO BID Prescribed by: Jane Metz on 09/03/221938 Ketorolac Tromethamine (Ketorolac Tromethamine) 10 Mg Tablet, 10 MG PO Q6H Prescribed by: PATRICIA EUCEDA on 02/05/221757 Ketorolac Tromethamine (Ketorolac Tromethamine) 10 Mg Tablet, 10 MG PO TID Prescribed by: Jane Metz on 09/03/221938 Magnesium Citrate (Magnesium Citrate) 296 Ml Solution, 296 ML PO DAILY PRN PRN for CONSTIPATION-2ND LINE Prescribed by: SOFI WEBBER on 04/01/22 145 Metoprolol Succinate (Toprol Xl) 25 Mg Tab.er.24h, 25 MG PO DAILY Prescribed by: KRISTINE HOROWITZ on 06/03/22 175 Na Phos,M-B/Na Phos,Di-Ba (Fleet Enema) 19 Gram-7 Gram/118 Ml Enema, 133 ML RC DAILY PRN for CONSTIPATION-3RD LINE Prescribed by: SOFI WEBBER on 04/01/22 145 Ondansetron (Ondansetron Odt) 4 Mg Tab.rapdis, 4 MG PO Q4H Prescribed by: MASSIEL VOGEL on 03/12/221999 Ondansetron (Ondansetron Odt) 4 Mg Tab.rapdis, 4 MG PO Q4H Prescribed by: SOFI WEBBER on 04/01/22 145 Promethazine HCl (Promethazine Tablet) 25 Mg Tablet, 25 MG PO Q6H PRN for NAUSEA/VOMITING Prescribed by: PATRICIA EUCEDA on 02/05/22 173 Promethazine HCl (Promethazine Tablet) 25 Mg Tablet, 25 MG PO Q6H PRN for NAUS EA/VOMITING Prescribed by: SOFI WEBBER on 03/26/22 1528 Past Rwfbfyt-Rawdvu-Nouuvs Hx Patient Social History Smoking Status: Former Smoker Alcohol Use?: No (former heavy alcohol use, no longer drinks) Substance type: Opiates/Opioids (former opioid use, now on suboxone) Reviewed Nursing Assessment Reviewed/Agree w Nursing PMH: Yes Family Medical History Significant Family History: Cancer (breast cancer in mother), COPD (in mother), Diabetes (mother) Review of Systems-General Constitutional: chills; No diaphoresis, No fever EENTM: No hearing loss, No vision loss Respiratory: No cough, No short of breath Cardiovascular: No chest pain Gastrointestinal: abdominal pain (RLQ), nausea; No vomiting Genitourinary: No dysuria, No hematuria Musculoskeletal: No back pain, No neck pain Skin: No change in color, No change in hair/nails Psychiatric/Neurological: Denies Anxiety, Denies Depressed, Denies Emotional Problems All Other Systems Reviewed Negative Unless Noted: Yes (Negative excepted noted.) Physical Exam-General Problems Physical Exam General Appearance: WD/WN, no apparent distress HEENT: PERRL/EOMI, normal ENT inspection Neck: non-tender, supple Respiratory: chest non-tender, no respiratory distress, no accessory muscle use Cardiovascular: normal peripheral pulses, regular rate, rhythm Gastrointestinal: soft; No distended; tenderness (rlq) Rectal: deferred Back: normal inspection, no CVA tenderness Extremities: non-tender, no pedal edema Neurologic/Psychiatric: alert, normal mood/affect, oriented x 3 Skin: normal color, warm/dry Lymphatic: no adenopathy Assessment/Plan Assessment/Plan Assessment/Plan Appendicitis RLQ pain CT evidence of early appendicitis Pt informed of risks and benefits of procedures, consents to surgery this morning Lindsayn in ED Discussed risks and benefits of Laparoscopic appendectomy and all other indicated procedures Patient wishes to proceed. NPO Supervisory-Addendum Brief Verification & Attestation Participated in pt care: history, MDM, physical Personally performed: exam, history, MDM, supervision of care Care discussed with: Medical Student Procedures: n/a Results interpretation: Verified all documentation Verification and Attestation of Medical Student E/M Service A medical student performed and documented this service in my presence. I reviewed and verified all information documented by the medical student and made modifications to such information, when appropriate. I personally performed the physical exam and medical decision making. Kamila Mckee Nov 09, 2022,10:34 BRIAN STOKES Nov 09, 2022 09:55 KAMILA MCKEE DO Nov 09, 2022 10:34
[2022-11-09] MEDS ORDERED: BUP/EPI 0.5% 1:200,000 (SENSORCAINE) 30 ML VIAL ONE (10:12)
[2022-11-09] MEDS ORDERED: LACTATED RINGERS 1,000 ML IV PRN (10:30)
[2022-11-09] MEDS ORDERED: LIDOCAINE PF 2% 5 ML (XYLOCAINE) VIAL ONE (10:39)
[2022-11-09] MEDS ORDERED: ONDANSETRON 4 MG/2 ML (SDV) Z0FRAN ONE ×2 (10:39→10:51)
[2022-11-09] MEDS ORDERED: fentaNYL INJ 100 MCG/2 ML AMP ONE ×3 (10:39→11:40)
[2022-11-09] MEDS ORDERED: proPOfol 200 MG/20 ML (DIPRIVAN) VIAL IV ONE (10:39)
[2022-11-09] MEDS ORDERED: MIDAZOLAM 2 MG/2 ML (VERSED) VIAL ONE (10:40)
[2022-11-09] MEDS ORDERED: morphine INJ 10 MG/ML 1ML (SYR OR VIAL) ONE (10:49)
[2022-11-09] MEDS ORDERED: BUP/EPI 0.5% 1:200,000 (SENSORCAINE) 30 ML VIAL INJ ONE (11:22)
[2022-11-09] MEDS ORDERED: NEOSTIGMINE (BLOXIVERZ ) 1 MG/1ML 10 ML VIAL ONE (11:33)
[2022-11-09] MEDS ORDERED: ROCURONIUM 50 MG/5 ML (ZEMURON) VIAL IV ONE (11:33)
[2022-11-09] MEDS ORDERED: GLYCOPYRROLATE 0.2 MG/ML (ROBINUL) 2 ML VIAL ONE (11:33)
--- NOTE | 2022-11-09 11:38 | Progress Note-Post Operative ---
Post-Operative Progess Note Surgeon (s)/Industrial Green Systems Designer (s) Surgeon KAMILA MCKEE DO Industrial Green Systems Designer: na Pre-Operative Diagnosis acute appendicitis, rlq abdominal pain Post-Operative Diagnosis same Procedure & Operative Findings Date of Procedure 11/09/22 Procedure Performed/Findings PROCEDURE: Laparoscopic appendectomy. COMPLICATIONS: None. INDICATIONS: The patient is a 32 year old female who has been having right lower quadrant abdominal pain. Patient's exam consistent with appendicitis. I discussed risk and benefits of laparoscopic appendectomy and all indicated procedures with the possibility being a normal appendix. The patient understands the risks and benefits and wishes to proceed. Consent was signed on the chart. DESCRIPTION OF PROCEDURE: The patient was taken to the operating suite, prepped and draped in a sterile fashion. Timeout was performed. Local anesthetic was infiltrated just above the umbilicus and 11-blade scalpel was used to make a skin incision. Cautery was used to dissect down to the fascia and scored. Kochers were used to grasp and elevate it and the abdomen was then entered. A 0 Vicryl was placed in a [id number] fashion for closure at the end of the case. The balloon trocar was inserted into the abdomen and pneumoperitoneum was achieved. Under direct visualization of the laparoscope, a 5 mm trocar was placed in the suprapubic region and a 5 mm trocar was placed in the left lower quadrant. Appendix was located, Inflamed dilated appendix. The base of the appendix was dissected around. Once at the base an Endo-ADRIANNE 2.5 stapler was then fired across the base of the appendix. The mesoappendix was then divided. It was then placed in an Endobag and removed through the 12 mm trocar site. The abdomen was then irrigated and suctioned. No other pathology noted. The abdomen was then desufflated and the trocars were removed. The 0 Vicryl placed at the beginning of the case was then tied closing the 12 mm fascial defect. The skin was then closed using 4-0 Monocryl in a subcuticular fashion. The abdomen was then washed and dried and Skin Affix was placed over the incisions. The patient tolerated the procedure well without any complications and was taken to the recovery room in stable condition. Anesthesia Type General Estimated Blood Loss Estimated blood loss (mL): minimal Specimens/Packing Specimens Removed appendix KAMILA MCKEE DO Nov 09, 2022 11:38
[2022-11-09] MEDS ORDERED: SEVOFLURANE (ULTANE) 15 ML INHAL SOLN ONE (11:41)
[2022-11-09] MEDS ORDERED: DOCU-143 PO (11:42)
[2022-11-09] MEDS ORDERED: TRAM50TA3 PO (11:42)
--- NOTE | 2022-11-09 11:43 | Discharge Inst-Simple/Standard ---
Discharge Inst-Standard Discharge Medications New, Converted or Re-Newed RX: Transmitted to Pharmacy Patient Instructions/Follow Up Plan of Care/Instructions/FU: 2 week Monty Activity as Tolerated: No Discharge Diet: Regular Diet Other Inst to Patient Follow up Appt: Make appointment for 2 week. Instructions: No lifting greater than 10 pounds. No strenuous activity. May shower in 24 hours, no tub bath or soaking. Use incentive spirometer at home as directed. No Smoking Skin/Wound Care: You have special glue over your incision that will fall off on it's own. Symptoms to Report: Appetite Changes, Extremity Discoloration, Numbness/Tingling, Swelling Increased, Bleeding Excessive, Eyesight Changes, Pain Increased, Urine Color Change, Constipation(Persistent), Fever over 101 degree F, Pain/Pressure in chest, Urinating Difficulty, Cough Up/Vomit Blood, Heart Beat Irreg/Pounding, Pain/Pressure in jaw, Vaginal Bleeding Increase, Cramps in feet or legs, Lightheadedness, Pain/Pressure in shoulder, Diarrhea(Persistent), Memory Changes Suddenly, Questions/Concerns, Weight gain consecutive days, Dizziness/Fainting, Nausea/Vomiting, Shortness of Breath, Weight gain over 2 pounds If questions or concerns contact your physician Or seek help at emergency department. KAMILA MCKEE DO Nov 09, 2022 11:43
--- NOTE | 2022-11-09 12:12 | Anesthesia-General Post-Op ---
General Patient Condition Mental Status/LOC: Same as Preop Cardiovascular: Satisfactory Nausea/Vomiting: Absent Respiratory: Satisfactory Pain: Controlled Complications: Absent Post Op Complications Complications None Follow Up Care/Instructions Patient Instructions None needed. Anesthesia/Patient Condition Patient Condition Patient is doing well, no complaints, stable vital signs, no apparent adverse anesthesia problems. No complications reported per nursing. AMANDA PRITCHARD CRNA Nov 09, 2022 12:12
[2022-11-09] MEDS ORDERED: PROMETHAZINE INJ 25 MG/ML (PHENERGAN) AMP IVP ONE (12:15)
[2022-11-09] MEDS ORDERED: morphine INJ 10 MG/ML 1ML (SYR OR VIAL) IVP ONE (12:15)
[2022-11-09] MEDS: ONDANSETRON 4 MG/2 ML (SDV) Z0FRAN IVP PRN ×2 (12:24→13:50)
== END 2022-11-09 14:15 | disposition home or self-care (01) ==
LOC: EDUNIT# 06:52 → ER 06:53 → SDC 10:28 → ICU 12:49 → SDC 14:15
PROVIDERS: ATTEND Surgery
DX: K35.80 Unspecified acute appendicitis (principal); Z87.891 Personal history of nicotine dependence
CPT/HCPCS: 36415; 74177; 80053; 81000; 83690; 84703; 85025; 88304; 96365; 96375

== ENCOUNTER 2022-11-26 15:43 | Emergency (ER) | payer MEDICAID ==
[~2022-11-26] VITALS: Ht 147 cm; Wt 72.0 kg
[~2022-11-26 15:43] MED LIST changes: +DOCU-143 PO; +TRAM50TA3 PO
--- NOTE | 2022-11-26 16:24 | ED Abdominal Pain ---
General Chief Complaint: Abdominal/GI Problems Stated Complaint: UPPER ABD PAIN Nursing Triage Note: ARRIVED VIA AMB TO TRIAGE. APPENDECTOMY ON THE . STATES SHE STARTED HAVING ABD PAIN 3 DAYS AGO AND UNABLE TO EAT OR DRINK BECAUSE OF THE PAIN. ALSO STATES SHE STARTED HER PERIOD 2 WEEKS LATE AND IT IS A BROWN COLOR WHICH IS ODD. Source of Information: Patient Exam Limitations: No Limitations History of Present Illness Date Seen by Provider: Nov 26, 2022 Time Seen by Provider: 16:22 Initial Comments Patient is a 32-year-old female presents the ED with upper abdominal pain. Pain started 3 days ago described as sharp with radiation to her back. She states she has been having nausea with worsening pain with eating. She does have a history of acid reflux has been taking Protonix without much improvement. She does have a history of pancreatitis. Denies alcohol use. She has a history of cholecystectomy and appendectomy. Appendectomy was performed November 09. She did have some constipation after the surgery for at least 10 days. She did get a few days of diarrhea afterwards but has been constipated for the past 3 days. Currently on Linzess recently switched earlier this month. She was on Suboxone prior. She does take tramadol currently for pain. She noted she started her period on the . She reports some mild spotting. Denies any pelvic pain, vaginal discharge, dysuria, hematuria, vomiting, dysuria, hematuria increased urine frequency, chest pain, shortness of breath or cough. She is not concern for . She states the surgical wounds on her belly appear to be healing. Allergies and Home Medications Allergies Coded Allergies: fluconazole (Verified Allergy, Severe, SOA, 11/26/22) Patient Home Medication List Home Medication List Reviewed: Yes Cephalexin (Cephalexin) 500 Mg Tablet, 500 MG PO BID Prescribed by: SOFI WEBBER on 11/26/22 180 Docusate Sodium (Colace) 100 Mg Capsule, 100 MG PO BID Prescribed by: KAMILA MCKEE on 11/09/22 1142 Famotidine (Pepcid) 20 Mg Tablet, 20 MG PO BID Prescribed by: Jane Metz on 09/03/22 193 Magnesium Citrate (Magnesium Citrate) 296 Ml Solution, 296 ML PO DAILY PRN PRN for CONSTIPATION-2ND LINE Prescribed by: SOFI WEBBER on 04/01/22 1452 Metoprolol Succinate (Toprol Xl) 25 Mg Tab.er.24h, 25 MG PO DAILY Prescribed by: KRISTINE HOROWITZ on 06/03/22 1752 Na Phos,M-B/Na Phos,Di-Ba (Fleet Enema) 19 Gram-7 Gram/118 Ml Enema, 133 ML RC DAILY PRN for CONSTIPATION-3RD LINE Prescribed by: SOFI WEBBER on 04/01/22 1452 Sucralfate (Carafate) 1 Gram Tablet, 1 GM PO QID Prescribed by: SOFI WEBBER on 11/26/22 175 Tramadol HCl (Tramadol HCl) 50 Mg Tablet, 50 MG PO Q6H Prescribed by: KAMILA MCKEE on 11/09/22 1142 Review of Systems Review of Systems Constitutional: No chills, No diaphoresis, No malaise, No weakness EENTM: No Blurred Vision, No Eye Pain Respiratory: Denies Cough, Denies Orthopnea Cardiovascular: Denies Chest Pain Gastrointestinal: Abdominal Pain, Constipated, Diarrhea, Nausea; Denies Vomiting Genitourinary: Denies Burning, Denies Discharge, Denies Drainage, Denies F requency Musculoskeletal: back pain; No joint pain Skin: No change in color Past Byiuptk-Uyohut-Eqfdfc Hx Patient Social History Tobacco Use?: No Substance use?: No Alcohol Use?: No Immunizations Up To Date First/Initial COVID19 Vaccinat: denies Second COVID19 Vaccination Akin: denies Third COVID19 Vaccination Date: denies Past Medical History Surgery/Hospitalization HX: asthma, hx of cervical CA, neuropathy Surgery;tonsils and gallbladder removal. Surgeries: Yes (LEEP, TEETH REMOVED) Gallbladder, Tonsillectomy Respiratory: Yes Asthma Currently Using CPAP: No Currently Using BIPAP: No Cardiac: Yes High Cholesterol, Palpitations Neurological: Yes (FIBROMYALGIA) Neuropathy Reproductive Disorders: Yes (CERVICAL CANCER--S/P LEEP) Genitourinary: Yes Bladder Infection Gastrointestinal: Yes Gastroesophageal Reflux, Chronic Constipation Musculoskeletal: Yes (CHRONIC GENERALIZED PAIN ) Fibromyalgia Endocrine: No HEENT: Yes (ALL TEETH REMOVED) Cancer: Yes Cervical Did You Recieve Any Treatments: Yes What Type of Treatment Did You: Surgical Intervention Psychosocial: Yes (POLYSUBSTANCE ABUSE-ALCOHOL + OPIATES) Integumentary: No Blood Disorders: No Family Medical History Cancer, COPD, Diabetes SOCIAL HISTORY: -SMOKES 2 PPD -ETOH--HISTORY OF VERY HEAVY/DAILY USE. CLAIMS NO USE X 7 YEARS, PER PT 03/12/22 -DRUGS--CHRONIC OPIATE USE/ABUSE-NOW ON SUBOXONE PAST SURGICAL HISTORY: -LEEP -CHOLECYSTECTOMY -ALL TEETH REMOVED Physical Exam Vital Signs Vital Signs - First Documented 11/26/22 15:50 Temp 36.8 Pulse 73 Resp 16 B/P (MAP) 148/105 (119) Pulse Ox 98 O2 Delivery Room Air Capillary Refill : Less Than 3 Seconds Height/Weight/BMI Height: '" Weight: lbs. oz. kg; 33.00 BMI Method: General Appearance: WD/WN, no apparent distress HEENT: PERRL/EOMI, normal ENT inspection, TMs normal, pharynx normal Neck: non-tender, full range of motion, supple Respiratory: chest non-tender, lungs clear, normal breath sounds, no respiratory distress, no accessory muscle use Cardiovascular: regular rate, rhythm, no edema, no gallop, no JVD Gastrointestinal: normal bowel sounds, soft, no organomegaly, tenderness (Epigastric tenderness on palpation) Extremities: normal range of motion, non-tender, normal inspection, no pedal edema Back: normal inspection, no CVA tenderness Neurologic/Psychiatric: precipitate washer II-XII nml as tested, no motor/sensory deficits, alert, normal mood/affect, oriented x 3 Skin: normal color, warm/dry Progress/Results/Core Measures Results/Orders Lab Results Laboratory Tests Test 11/26/22 17:00 11/26/22 17:05 Range/Units White Blood Count 5.3 4.3-11.0 10^3/uL Red Blood Count 4.75 3.80-5.11 10^6/uL Hemoglobin 13.8 11.5-16.0 g/dL Hematocrit 41 35-52 % Mean Corpuscular Volume 87 80-99 fL Mean Corpuscular Hemoglobin 29 25-34 pg Mean Corpuscular Hemoglobin Concent 34 32-36 g/dL Red Cell Distribution Width 11.9 10.0-14.5 % Platelet Count 223 130-400 10^3/uL Mean Platelet Volume 10.3 9.0-12.2 fL Immature Granulocyte % (Auto) 0 % Neutrophils (%) (Auto) 45 42-75 % Lymphocytes (%) (Auto) 46 H 12-44 % Monocytes (%) (Auto) 8 0-12 % Eosinophils (%) (Auto) 1 0-10 % Basophils (%) (Auto) 0 0-10 % Neutrophils # (Auto) 2.4 1.8-7.8 10^3/uL Lymphocytes # (Auto) 2.5 1.0-4.0 10^3/uL Monocytes # (Auto) 0.4 0.0-1.0 10^3/uL Eosinophils # (Auto) 0.1 0.0-0.3 10^3/uL Basophils # (Auto) 0.0 0.0-0.1 10^3/uL Immature Granulocyte # (Auto) 0.0 0.0-0.1 10^3/uL Percent Immature Platelet Fraction 2.9 0.0-7.6 % Sodium Level 140 135-145 MMOL/L Potassium Level 4.5 3.6-5.0 MMOL/L Chloride Level 107 98-107 MMOL/L Carbon Dioxide Level 19 L 21-32 MMOL/L Anion Gap 14 5-14 MMOL/L Blood Urea Nitrogen 11 7-18 MG/DL Creatinine 0.81 0.60-1.30 MG/DL Estimat Glomerular Filtration Rate 98 BUN/Creatinine Ratio 14 Glucose Level 83 70-105 MG/DL Calcium Level 9.9 8.5-10.1 MG/DL Corrected Calcium 9.5 8.5-10.1 MG/DL Total Bilirubin 0.4 0.1-1.0 MG/DL Aspartate Amino Transf (AST/SGOT) 45 H 5-34 U/L Alanine Aminotransferase (ALT/SGPT) 63 H 0-55 U/L Alkaline Phosphatase 81 40-136 U/L Total Protein 7.4 6.4-8.2 GM/DL Albumin 4.5 3.2-4.5 GM/DL Lipase 34 8-78 U/L Serum Test, Qualitative NEGATIVE NEGATIVE Urine Color YELLOW Urine Clarity CLEAR Urine pH 6.0 5-9 Urine Specific [place] 1.020 1.016-1.022 Urine Protein NEGATIVE NEGATIVE Urine Glucose (UA) NEGATIVE NEGATIVE Urine Ketones TRACE H NEGATIVE Urine Nitrite NEGATIVE NEGATIVE Urine Bilirubin NEGATIVE NEGATIVE Urine Urobilinogen 1.0 < = 1.0 MG/DL Urine Leukocyte Esterase TRACE H NEGATIVE Urine RBC (Auto) 2+ H NEGATIVE Urine RBC 2-5 H /HPF Urine WBC 0-2 /HPF Urine Squamous Epithelial Cells 2-5 /HPF Urine Crystals NONE /LPF Urine Bacteria FEW H /HPF Urine Casts PRESENT /LPF Urine Hyaline Casts RARE /LPF Urine Mucus NEGATIVE /LPF Urine Culture Indicated YES My Orders Orders - RODNEY CAAL Cbc With Automated Diff (11/26/22 16:19) Comprehensive Metabolic Panel (11/26/22 16:19) Lipase (11/26/22 16:19) Urinalysis (11/26/22 16:19) Hcg,Qualitative Serum (11/26/22 16:19) Abdomen/Kub 1view (11/26/22 16:19) Lidocaine 2% Viscous 15 Ml (Xylocaine Vi (11/26/22 16:30) Antacid Suspension (Mylanta Suspension (11/26/22 16:30) Iv/Invasive Line Insertion .IV INSERT (11/26/22 16:19) Urine Culture (11/26/22 17:05) Morphine Injection (Morphine Injection (11/26/22 18:15) Medications Given in ED Current Medications Medications Dose Ordered Sig/Mani Route Start Time Stop Time Status Last Admin Dose Admin Al Hydrox/Mg Hydrox/Simethicone 30 ml ONCE ONCE PO 11/26/22 16:30 11/26/22 16:31 DC 11/26/22 16:57 30 ML Lidocaine HCl 15 ml ONCE ONCE PO 11/26/22 16:30 11/26/22 16:31 DC 11/26/22 16:57 15 ML Morphine Sulfate 2 mg ONCE ONCE IM 11/26/22 18:15 11/26/22 18:12 DC 11/26/22 18:10 2 MG Vital Signs/I&O 11/26/22 11/26/22 11/26/22 15:50 18:10 18:13 Temp 36.8 36.8 36.8 Pulse 73 59 Resp 16 16 B/P (MAP) 148/105 (119) 104/72 Pulse Ox 98 98 O2 Delivery Room Air Room Air Blood Pressure Mean: 119 Departure Communication (PCP) Reviewed previous ER visits, H&P, testing. Patient with an appendectomy on November 09. Pain in her upper abdomen over the past 3 days worse with eating. History of cholecystectomy. No known cardiac history. Denies chest pain, cough or shortness of breath. Due to location of pain CBC, CMP, lipase. Differential diagnosis of gastritis, pancreatitis, peptic ulcer, hepatitis. She was given a GI cocktail with some improvement. She is currently on Protonix for acid reflux. She states she did eat a meal with tomato and chicken that seem to start the pain that she has been having over the past three days. She does get some improvement but typically worse right after eating. Nausea without vomiting. Has been constipated for the past 3 days. Due to the constipation recent surgery abdominal x-ray was ordered which did note constipation without evidence of obstruction. CBC showed normal white blood count, hemoglobin. CMP was otherwise unremarkable. Normal lipase. Patient pain appears to be improving at this time. Discussed adding Carafate for potential ulcer. She does report a sharp pain radiating to her back. history of gastritis. she has been on ibuprofen for some time for pain. Recommend stopping the ibuprofen. she is currently on Linzess. She has been on Suboxone prior. Currently on tramadol and currently weaning off the medication. Recommend GI outpatient follow-up for further evaluation. Would likely benefit with EGD. Return precautions were discussed with patient. Discussed diet changes. Impression Primary Impression: Abdominal pain Disposition: HOME, SELF-CARE Condition: Stable Departure-Patient Inst. Decision time for Depature: 17:55 Referrals: KAMILA MCKEE RYAN C MD (PCP) Primary Care Physician Patient Instructions: Gastritis (DC), Constipation, Adult (DC) Scripts Cephalexin (Cephalexin) 500 Mg Tablet 500 MG PO BID for 7 Days, #14 TAB Prov: RODNEY CAAL 11/26/22 Sucralfate (Carafate) 1 Gram Tablet 1 GM PO QID, #60 TAB Prov: RODNEY CAAL 11/26/22 RODNEY CAAL Nov 26, 2022 16:24
[2022-11-26] MEDS ORDERED: ANTACID SUSP 30 ML UDC (MYLANTA) PO ONE (16:30)
[2022-11-26] MEDS ORDERED: LIDOCAINE 2% VISCOUS 15 ML UDC PO ONE (16:30)
--- NOTE | 2022-11-26 16:46 | Diagnostic Imaging Report ---
INDICATION: Upper abd pain. COMPARISON: CT dated 11/09/2022. FINDINGS: A single supine radiographic view of the abdomen was obtained and demonstrates nondistended loops of small bowel. There is no large collection of free peritoneal air. Mild air and stool are seen scattered throughout the colon. No unexpected extraosseous calcifications or radiopaque foreign bodies are seen. Bony structures show no gross acute abnormalities. IMPRESSION: Nonobstructed small bowel gas pattern. Dictated by: Dictated on workstation # [id number]
[2022-11-26 17:12] LABS: BASOPHILS % (AUTO) 0 % (0-10); EOSINOPHILS # (AUTO) 0.1 10^3/uL (0.0-0.3); LYMPHOCYTES # (AUTO) 2.5 10^3/uL (1.0-4.0); LYMPHOCYTES % (AUTO) 46 % (12-44); MEAN CORPUSCULAR HEMOGLOBIN 29 pg (25-34); MEAN CORPUSCULAR HGB CONC 34 g/dL (32-36); MEAN CORPUSCULAR VOLUME 87 fL (80-99); MONOCYTES # (AUTO) 0.4 10^3/uL (0.0-1.0); NEUTROPHILS # (AUTO) 2.4 10^3/uL (1.8-7.8); WHITE BLOOD COUNT 5.3 10^3/uL (4.3-11.0)
[2022-11-26 17:13] LABS: BILIRUBIN,URINE NEGATIVE (NEGATIVE); CLARITY,URINE CLEAR; COLOR,URINE YELLOW; GLUCOSE, URINE (UA) NEGATIVE (NEGATIVE); KETONES,URINE TRACE (NEGATIVE); LEUKOCYTE ESTERASE ,URINE TRACE (NEGATIVE); NITRITE,URINE NEGATIVE (NEGATIVE); PROTEIN,URINE NEGATIVE (NEGATIVE)
[2022-11-26 17:19] LABS: ALBUMIN 4.5 GM/DL (3.2-4.5); POTASSIUM 4.5 MMOL/L (3.6-5.0)
[2022-11-26 17:21] LABS: CALCIUM 9.9 MG/DL (8.5-10.1)
[2022-11-26 17:22] LABS: TOTAL PROTEIN 7.4 GM/DL (6.4-8.2)
[2022-11-26 17:23] LABS: BACTERIA,URINE FEW /HPF; HYALINE CASTS, URINE RARE /LPF; WBC,URINE 0-2 /HPF
[2022-11-26 17:23] LABS: EOSINOPHILS % (AUTO) 1 % (0-10); HEMATOCRIT 41 % (35-52); HEMOGLOBIN 13.8 g/dL (11.5-16.0); MEAN PLATELET VOLUME 10.3 fL (9.0-12.2); MONOCYTES % (AUTO) 8 % (0-12); NEUTROPHILS % (AUTO) 45 % (42-75); PLATELET COUNT 223 10^3/uL (130-400)
[2022-11-26 17:24] LABS: BILIRUBIN,TOTAL 0.4 MG/DL (0.1-1.0)
[2022-11-26 17:25] LABS: CREATININE SERUM 0.81 MG/DL (0.60-1.30)
[2022-11-26] MEDS ORDERED: SUCR1TAB36 PO (17:56)
[2022-11-26] MEDS ORDERED: CEPH500T PO (18:03)
[2022-11-26 18:13] VITALS: BP 104/72
[2022-11-26] MEDS ORDERED: morphine INJ 10 MG/ML 1ML (SYR OR VIAL) IM ONE (18:15)
== END 2022-11-26 18:12 | disposition home or self-care (01) ==
LOC: EDUNIT# 15:43 → ER 15:47
DX: R10.13 Epigastric pain (principal); F17.210 Nicotine dependence, cigarettes, uncomplicated; Z90.49 Acquired absence of other specified parts of digestive tract; Z87.19 Personal history of other diseases of the digestive system; Z32.02 Encounter for pregnancy test, result negative; Z28.310 Unvaccinated for COVID-19
CPT/HCPCS: 36415; 74018; 80053; 81000; 83690; 84703; 85025; 87088